=== PATIENT | male | born 1950 | race Caucasian/White ===

== ENCOUNTER → 2019-09-13 09:47 | Outpatient (BNVA) | payer OTHER, SELFPAY | PROVIDERS: Family Provider Family Medicine Adult Medicine; PCP Emergency Medicine Emergency Medical Services; Visit Provider Urology | DX: C61 Malignant neoplasm of prostate (principal); N39.9 Disorder of urinary system, unspecified; N40.1 Benign prostatic hyperplasia with lower urinary tract symptoms | CPT/HCPCS: 81001; 84153 ==

== ENCOUNTER 2019-10-14 11:59 | Outpatient (CLI) | payer OTHER, SELFPAY ==
--- NOTE | 2019-10-14 18:57 | ONC CON_ITS ---
Dr. Salazar New Patient Note Patient: Steve Adames Unit #: [id number]: 1950 Dicatated By: Terence Salazar M.D.Date of Visit: Oct 14, 2019 Onc MED New Patient/Consult Referring Physician: Dr. Wolf Cook M.D. Chief Complaint: Prostate cancer. History of Present Illness: This is a 69 year-old man with Cambridge score 7 adenocarcinoma of the prostate, by clinical evaluation stage IIB (T2b, N0, M0) at initial diagnosis in March 2007. His baseline PSA was 5.4 ng/mL. The prostate cancer was initially diagnosed by transrectal ultrasound-guided biopsy on 04/10/2007 with pathology showing Cambridge score 7 adenocarcinoma involving 6 of 6 specimens from the right lobe. Baseline PSA, as noted, was 5.4 ng/mL. He was treated with cryotherapy, completed in 2007. By 2008 the PSA had increased to 4.1, at which point he underwent external beam radiation in combination with an LHRH agonist. The radiation was completed in August 2008. He continued the androgen deprivation therapy until December 2008, having stopped at that point due to multiple toxicities including severe hot flashes and severe weakness/fatigue. He indicates that he began hormonal therapy with bicalutamide approximately 2 years ago. He had staging evaluation with CT scans of the chest and of the abdomen/pelvis and with bone scan in September 2017. None of these had shown any evidence of metastatic disease. He continued the bicalutamide for about a year. As of February 2019 his PSA had increased to 9.28 ng/mL. A PET/CT on 02/22/2019 reported abnormal activity within the prostate gland, consistent with local recurrence. A tiny punctate focus of increased activity was noted in the central aspect of the C6 vertebral body. Follow-up imaging of the neck was reportedly negative. As of June 2019 the PSA had further increased to 12.2 ng/mL. At that point he restarted bicalutamide 50 mg daily. He had follow-up with Dr. Cook on 09/13/2019. His repeat PSA level at that time was down to 5.1 ng/mL. He is seen now for further management of the prostate cancer. He says that overall he feels really good, though he does stay tired and sluggish. His ECOG score is 1. He has good appetite. He has no fever, night sweats, or hot flashes. His breathing is generally good, though he does get short of breath with more strenuous activity. He says he has a cigarette cough. He does not complain of chest pain. He has occasional acid reflux and he occasionally has constipation. He has some urgency with urination, and he has been voiding a little more frequently. He occasionally has a little leakage in association with strenuous activity. He has some joint pain, mainly in the shoulders. He also has arthritis in his hands and his ankles and feet, but he does not have much pain with it. He does not complain of headache. He has some dizziness if he gets up really fast. He occasionally has numbness in his left foot. He has no other focal neurologic symptoms. Past Medical History: His medical history includes chronic back pain, history of cardiac arrhythmia, hyperlipidemia, hypertension, post traumatic stress disorder, and prostate cancer. Past Surgical History: His other surgical/procedural history includes right total knee arthroplasty, cystoscopy with Urolift prostate implant x 4 in 2018, dorsal slit circumcision in 2016, and cholecystectomy in 2014. Medications: hydroCHLOROthiazide 0.5 Tablet (of 25 mg) Oral daily, Lisinopril 0.5 Tablet (of 10 mg) Oral daily Allergies: coreg Social History: Mr. Adames is and he is retired. He has a history of smoking for 55 years, in the range of 1 pack of cigarettes daily. He has now cut down to 1/2 pack/day. He currently does not drink alcohol. He had heavy alcohol use back in the early 1970s, but for only 2 years. Family History: Family history significant for father having of lung cancer at age 39 and for a sister having of ovarian cancer at age 47. His mother at age 75 with complications following gallbladder surgery. He has two brothers, one of whom has diabetes. He has one other sister who also has diabetes. Review Of Symptoms: Constitutional - He generally feels really good. He does stay fatigued most of the time. He does some light work around the house. His appetite is good and weight is stable. No fever, night sweats, or hot flashes. ECOG score is 1, Eyes - He has had a little decline in vision, ENMT - He has some hearing loss. No tinnitus. No sinus congestion/drainage. No mouth sores. No sore throat or difficulty swallowing, Hematologic/Lymphatic - He bruises easily, Respiratory - He has some shortness of breath with more strenuous activity. He has a chronic smoker's cough. No pleuritic pain or hemoptysis, Cardiovascular - No angina pain. No palpitations, Gastrointestinal - No nausea or vomiting. No heartburn or acid reflux. No diarrhea. He has some occasional mild constipation. No blood in the stool or black stools, Genitourinary (M) - No dysuria or hematuria. He has urgency with urination and he voids a little more frequently. He has a little incontinence with strenuous activity, Musculoskeletal - He has arthritis pain in his shoulders and ankles. He also has soem chronic back pain, Integumentary - No skin complications, Neurologic - No headache or dizziness. He has occasional tingling in his left foot. No other focal neurologic symptoms, Psychiatric - No anxiety or depression. No insomnia. Vital Signs: Performed on Oct 14, 2019 12:44: 0, 30.31 (HIGH), 2.43 sq.m, 76.00 in, 97 %, 74 /min, 22 /min, 140/81 mm(hg), 98.4 F, and 249.0 lbs (HIGH). Physical Examination: Constitutional - He appears to be in good general health, Eyes - Sclerae nonicteric. Conjunctivae clear, ENMT - No lesions noted in the oral cavity, Neck - No mass or thyromegaly, Hematologic/Lymphatic - No cervical, clavicular, or axillary adenopathy, Respiratory - Lungs show some decrease in air movement bilaterally. There are coarse rales bilaterally, Cardiovascular - Heart rhythm is regular. There is no murmur, gallop, or rub noted, Abdomen - Soft and non-tender. Liver and spleen are not enlarged. There is no abdominal mass or ascites noted and there is no inguinal adenopathy, Back/Spine - No spine or CVA tenderness noted, Extremities - No edema. Dorsalis pulses are palpable bilaterally. There are scattered purpuric lesions on both arms, Integumentary - No rashes. No suspicious skin lesions noted, Neurologic - No focal neurologic deficits noted. Impression: 1. Patient with Cambridge score 7 adenocarcinoma of the prostate, by clinical evaluation stage IIB (T2b, N0, M0) at initial diagnosis in March 2007. His baseline PSA was 5.4 ng/mL. He underwent cryotherapy, completed in 2007. 2. In 2008 he underwent external beam radiation in association with androgen deprivation therapy for biochemical recurrence/progression. The radiation was completed in August 2008. He stopped androgen deprivation in December 2008 due to multiple side effects. 3. He began anti-androgen therapy with bicalutamide in 2017, again because of biochemical progression. There was no evidence of metastatic involvement on his staging imaging studies. He completed approximately 1 year of therapy. 4. Staging PET/CT in February 2019 for rising PSA (9.28 ng/mL) reportedly showed abnormal activity within the prostate gland consistent with local recurrence and a tiny focus of increased activity in the central aspect of the C6 vertebral body. Significance of the latter was uncertain, as follow-up imaging was reportedly negative. 5. In June 2019 he restarted bicalutamide 50 mg daily due to further increase in the PSA to 12.2 ng/mL. He does appear to be showing response by PSA level. His other medical illnesses include: 6. Hypertension. 7. Hyperlipidemia. 8. He appears to have COPD by clinical evaluation. 9. He has a history of cardiac arrhythmia. 10. Degenerative arthritis. 11. History of PTSD. 12. There is family history of ovarian cancer involving a first-degree relative. Patient has had evidence of local recurrence of his prostate cancer following initial cryotherapy and subsequent external beam radiation in association with short course androgen deprivation therapy. He tolerated the androgen deprivation very poorly. More recently, he has had evidence of response to antiandrogen therapy with bicalutamide, which he seems to tolerate pretty well. As yet, there has still been no documented metastatic disease. There is also the issue of his family history of ovarian cancer involving a first-degree relative, which raises the possibility of a BRCA-related malignancy. Plan: We discussed the fact that addition of androgen deprivation therapy would potentially be more effective in controlling his disease, but it obviously would be at the expense of significantly more side effects and a reduced quality of life. As he does appear to be showing response to the bicalutamide, I think it is very reasonable to just continue with the antiandrogen therapy, though I did suggest that he at least try increasing the bicalutamide dosage to 50 mg 3 times a day. For the time being I will continue to monitor his PSA monthly. He will be scheduled for a follow-up visit in 3 months, at which time I will obtain additional laboratory studies which will include screening for BCRA. At some point it would also potentially be helpful to have a next generation sequencing study, but in all likelihood that is going to require a new biopsy. Signed By: Terence Salazar M.D. <<Signature on File>>
== END 2019-10-14 12:00 | disposition home or self-care (01) ==
LOC: ONCMED 12:01
PROVIDERS: PCP Emergency Medicine Emergency Medical Services; Referring Provider Emergency Medicine Emergency Medical Services; Visit Provider Internal Medicine Medical Oncology
DX: C61 Malignant neoplasm of prostate (principal); E78.5 Hyperlipidemia, unspecified; I10 Essential (primary) hypertension; F43.10 Post-traumatic stress disorder, unspecified; J44.9 Chronic obstructive pulmonary disease, unspecified; Z92.3 Personal history of irradiation; Z79.818 Long term (current) use of other agents affecting estrogen receptors and estrogen levels
CPT/HCPCS: 99205

== ENCOUNTER 2019-11-15 09:43 | Outpatient (CLI) | payer OTHER, SELFPAY | END 2019-11-15 09:44 | disposition home or self-care (01) | LOC: ONCMED 09:46 | PROVIDERS: PCP Emergency Medicine Emergency Medical Services; Visit Provider Internal Medicine Medical Oncology | DX: C61 Malignant neoplasm of prostate (principal) | CPT/HCPCS: 36415; 84153 ==

== ENCOUNTER 2019-12-20 09:45 | Outpatient (CLI) | payer OTHER, SELFPAY | END 2019-12-20 09:46 | disposition home or self-care (01) | LOC: ONCMTN 09:46 → ONCMED 15:05 | PROVIDERS: PCP Emergency Medicine Emergency Medical Services; Visit Provider Internal Medicine Medical Oncology | DX: C61 Malignant neoplasm of prostate (principal) | CPT/HCPCS: 36415; 84153 ==

== ENCOUNTER 2020-01-20 11:50 | Outpatient (CLI) | payer OTHER, SELFPAY ==
[2020-01-20 15:41] LABS: Basophils % 0.5 %; Eosinophils # 0.1 10^3/uL (0.0-0.8); Eosinophils % 1.1 %; Hematocrit 41.7 % (42.0-52.0); Lymphocytes # 1.7 10^3/uL (0.8-4.8); Lymphocytes % 21.4 %; Mean Corpuscular HGB Conc 33.6 g/dL (30.0-36.0); Mean Corpuscular Hemoglobin 31.9 pg (28.0-34.0); Mean Platelet Volume 10.1 fL (7.4-10.4); Monocytes # 0.6 10^3/uL (0.2-0.9); Monocytes % 7.7 %; Neutrophils # 5.55 10^3/uL (1.8-7.7); Neutrophils % 69.1 %; Nucleated Red Blood Cells % 0 %; Platelet Count 216 10^3/cmm (130-400); Red Blood Count 4.39 10^6/uL (4.1-5.3)
[2020-01-20 16:11] LABS: Alanine Aminotransferase 16 U/L (0-41); Albumin Level 4.3 g/dL (3.5-5.2); Alkaline Phosphatase 72 IU/L (40-130); Aspartate Amino Transferase 22 U/L (0-40); Blood Urea Nitrogen 24 mg/dL (8-23); Calcium 9.5 mg/dL (8.5-10.5); Carbon Dioxide 28 mmol/L (22-29); Chloride 103 mmol/L (98-107); Globulin 3.2 g/dL (1.3-4.6); Glucose 99 mg/dL (65-115); Osmolality Calculated 287 mOsm/kg (285-295); Sodium 140 mmol/L (136-145); Testosterone Total 716.6 ng/dL (193-740); Thyroid Stimulating Hormone 1.63 uIU/mL (0.27-4.20); Total Bilirubin 0.3 mg/dL (0.15-1.2); Total Protein 7.5 g/dL (6.6-8.7)
[2020-01-20 16:50] LABS: Erythrocyte Sedimentation Rate 24 mm/hr (0-10)
--- NOTE | 2020-01-24 07:16 | ONC FU_ITS ---
Dr. Salazar Patient Follow-Up Note Patient: Steve Adames Unit #: [id number]: [id number] Dicatated By: Terence Salazar M.D.Date of Visit:Jan 20, 2020 Onc Med Follow-up/Prog Note Chief Complaint: Prostate cancer. History of Present Illness: This is a 69 year-old man with Railroad score 7 adenocarcinoma of the prostate, by clinical evaluation stage IIB (T2b, N0, M0) at initial diagnosis in March 2007. His baseline PSA was 5.4 ng/mL. The prostate cancer was initially diagnosed by transrectal ultrasound-guided biopsy on 04/10/2007 with pathology showing Enriqueta score 7 adenocarcinoma involving 6 of 6 specimens from the right lobe. Baseline PSA, as noted, was 5.4 ng/mL. He was treated with cryotherapy, completed in 2007. By 2008 the PSA had increased to 4.1, at which point he underwent external beam radiation in combination with an LHRH agonist. The radiation was completed in August 2008. He continued the androgen deprivation therapy until December 2008, having stopped at that point due to multiple toxicities including severe hot flashes and severe weakness/fatigue. He began hormonal therapy with bicalutamide approximately 2 years ago. He had staging evaluation with CT scans of the chest and of the abdomen/pelvis and with bone scan in September 2017. None of these had shown any evidence of metastatic disease. He continued the bicalutamide for about a year. As of February 2019 his PSA had increased to 9.28 ng/mL. A PET/CT on 02/22/2019 reported abnormal activity within the prostate gland, consistent with local recurrence. A tiny punctate focus of increased activity was noted in the central aspect of the C6 vertebral body. Follow-up imaging of the neck was reportedly negative. As of June 2019 the PSA had further increased to 12.2 ng/mL. At that point he restarted bicalutamide 50 mg daily. He had follow-up with Dr. Cook on 09/13/2019. His repeat PSA level at that time was down to 5.1 ng/mL. I had seen him initially on 10/14/2019. At that time he preferred to limit his treatment to the bicalutamide, but he did agree to try increasing the dosage up to 50 mg 3 times daily. As of 11/15/2019 his PSA had decreased to 4.10 ng/mL, and by 12/20/2019 had further declined to 2.35 ng/mL. However, at that point he had reduced his bicalutamide to twice daily due to side effects, mainly fatigue. His other medical illnesses include hypertension, hyperlipidemia, COPD, and degenerative arthritis. He also has a history of cardiac arrhythmia and a history of PTSD. He also has a family history of ovarian carcinoma affecting a first-degree relative. He has a history of smoking for 55 years, in the range of 1 pack of cigarettes daily. He has cut down to 1/2 pack/day. He is seen for a follow-up visit. His main complaint is that the bicalutamide is making him tired, but he is able to do light work. His ECOG score is 1. He has good appetite. He does not have fever, night sweats, or hot flashes. He says his breathing is not quite as good, and he does have some cough. He does not complain of chest pain. He has no GI or complaints. He has having muscle aching in his shoulders, mainly the deltoid area. He has no significant joint or bone pain. He reports having a little bit of tingling on the bottoms of his feet. Medications: Bicalutamide 1 (50 mg) Tablet Oral b.i.d., hydroCHLOROthiazide 0.5 Tablet (of 25 mg) Oral daily, Lisinopril 0.5 Tablet (of 10 mg) Oral daily Allergies: coreg Review of Systems: Constitutional - He complains that the bicalutamide is making him tired. He has still doing light work. He has good appetite. He does not have fever, night sweats, or hot flashes. ECOG score is 1, ENMT - No sinus congestion/drainage. No mouth sores. No sore throat or difficulty swallowing, Hematologic/Lymphatic - No abnormal bruising or bleeding, Respiratory - His breathing is not quite as good, and he does have some cough. No pleuritic pain or hemoptysis, Cardiovascular - No angina pain. No palpitations, Gastrointestinal - No nausea or vomiting. He has very occasional acid reflux. No diarrhea or constipation. No blood in the stool or black stools, Genitourinary (M) - No dysuria or hematuria. No urinary frequency. No urgency or incontinence, Musculoskeletal - He is having muscle aching in his shoulders, mainly the deltoid area. He has no significant joint or bone pain, Integumentary - No skin rash, Neurologic - No headache. He has a little bit of dizziness. He has a little bit of tingling on the bottoms of his feet. No other focal neurologic symptoms, Psychiatric - No anxiety or depression. No insomnia. Vital Signs: Performed on Jan 20, 2020 13:52 Height - 76.00 in Weight - 248.6 lbs (LOW) BSA - 2.43 sq.m BMI - 30.26 (HIGH) Temperature - 98.1 F (LOW) Pulse - 66 /min Respiration - 17 /min BP - 135/76 mm(hg) O2 Sat - 98 % Pain - 0 Physical Examination: Constitutional - He looks good generally, Eyes - Sclerae nonicteric. Conjunctivae clear, ENMT - No lesions noted in the oral cavity, Hematologic/Lymphatic - No cervical, clavicular, or axillary adenopathy, Respiratory - Lungs sound clear with some decrease in air movement bilaterally, Cardiovascular - Heart rhythm is regular. There is no murmur, gallop, or rub noted, Abdomen - Soft. Liver and spleen are not enlarged. There is no abdominal mass or ascites noted and there is no inguinal adenopathy, Extremities - No edema, Neurologic - No focal neurologic deficits noted. Lab/Imaging: Test performed on Jan 20, 2020 12:00 PSA 3.050 ng/mL Impression: 1. Patient with Enriqueta score 7 adenocarcinoma of the prostate, by clinical evaluation stage IIB (T2b, N0, M0) at initial diagnosis in March 2007. His baseline PSA was 5.4 ng/mL. He underwent cryotherapy, completed in 2007. 2. In 2008 he underwent external beam radiation in association with androgen deprivation therapy for biochemical recurrence/progression. The radiation was completed in August 2008. He stopped androgen deprivation in December 2008 due to multiple side effects. 3. He began anti-androgen therapy with bicalutamide in 2017, again because of biochemical progression. There was no evidence of metastatic involvement on his staging imaging studies. He completed approximately 1 year of therapy. 4. Staging PET/CT in February 2019 for rising PSA (9.28 ng/mL) reportedly showed abnormal activity within the prostate gland consistent with local recurrence and a tiny focus of increased activity in the central aspect of the C6 vertebral body. Significance of the latter was uncertain, as follow-up imaging was reportedly negative. 5. In June 2019 he restarted bicalutamide 50 mg daily due to further increase in the PSA to 12.2 ng/mL. He does appear to be showing response by PSA level. His other medical illnesses include: 6. Hypertension. 7. Hyperlipidemia. 8. He appears to have COPD by clinical evaluation. 9. He has a history of cardiac arrhythmia. 10. Degenerative arthritis. 11. History of PTSD. 12. There is family history of ovarian cancer involving a first-degree relative. Patient had evidence of local recurrence of his prostate cancer following initial cryotherapy and subsequent external beam radiation in association with short course androgen deprivation therapy. He tolerated the androgen deprivation very poorly. He has had response to anti-androgen therapy with bicalutamide, and as yet there has been no documented metastatic disease. He has family history of ovarian cancer involving a first-degree relative, which raises the possibility of a BRCA-related malignancy. He did show further decrease in his PSA level with his bicalutamide dosage increased to 50 mg 3 times daily, but he has not been able to tolerate that dosage due to fatigue and muscle pain. Plan: He will continue the bicalutamide at 50 mg daily. If his PSA increases significantly, we will need to discuss other treatment options. In the meantime, he will have additional laboratory studies today to include CBC, CMP, TSH level, and sed rate. In addition, he will have BRCA testing. I will tentatively plan a follow-up visit in 3 months. Signed By: Terence Salazar M.D. <<Signature on File>>
== END 2020-01-20 11:51 | disposition home or self-care (01) ==
LOC: ONCMED 11:50
PROVIDERS: PCP Emergency Medicine Emergency Medical Services; Visit Provider Internal Medicine Medical Oncology
DX: C61 Malignant neoplasm of prostate (principal); R53.83 Other fatigue; M79.10 Myalgia, unspecified site; I10 Essential (primary) hypertension; E78.5 Hyperlipidemia, unspecified; M19.90 Unspecified osteoarthritis, unspecified site; F43.10 Post-traumatic stress disorder, unspecified; Z80.41 Family history of malignant neoplasm of ovary; Z79.899 Other long term (current) drug therapy
CPT/HCPCS: 36415; 80053; 84153; 84403; 84443; 85025; 85651; 99214

== ENCOUNTER 2020-04-24 11:44 | Outpatient (CLI) | payer OTHER, SELFPAY ==
--- NOTE | 2020-04-28 14:44 | ONC FU_ITS ---
Dr. Salazar Patient Follow-Up Note Patient: Steve Adames Unit #: [id number]: [id number] Dicatated By: Terence Salazar M.D.Date of Visit:Apr 24, 2020 Onc Med Follow-up/Prog Note Chief Complaint: Prostate cancer. History of Present Illness: This is a 70 year-old man with Cornel[place] score 7 adenocarcinoma of the prostate, by clinical evaluation stage IIB (T2b, N0, M0) at initial diagnosis in March 2007. His baseline PSA was 5.4 ng/mL. The prostate cancer was initially diagnosed by transrectal ultrasound-guided biopsy on 04/10/2007 with pathology showing Enriqueta score 7 adenocarcinoma involving 6 of 6 specimens from the right lobe. Baseline PSA, as noted, was 5.4 ng/mL. He was treated with cryotherapy, completed in 2007. By 2008 the PSA had increased to 4.1, at which point he underwent external beam radiation in combination with an LHRH agonist. The radiation was completed in August 2008. He continued the androgen deprivation therapy until December 2008, having stopped at that point due to multiple toxicities including severe hot flashes and severe weakness/fatigue. He began hormonal therapy with bicalutamide approximately 2 years ago. He had staging evaluation with CT scans of the chest and of the abdomen/pelvis and with bone scan in September 2017. None of these had shown any evidence of metastatic disease. He continued the bicalutamide for about a year. As of February 2019 his PSA had increased to 9.28 ng/mL. A PET/CT on 02/22/2019 reported abnormal activity within the prostate gland, consistent with local recurrence. A tiny punctate focus of increased activity was noted in the central aspect of the C6 vertebral body. Follow-up imaging of the neck was reportedly negative. As of June 2019 the PSA had further increased to 12.2 ng/mL. At that point he restarted bicalutamide 50 mg daily. He had follow-up with Dr. Cook on 09/13/2019. His repeat PSA level at that time was down to 5.1 ng/mL. I had seen him initially on 10/14/2019. At that time he preferred to limit his treatment to the bicalutamide, but he did agree to try increasing the dosage up to 50 mg 3 times daily. As of 11/15/2019 his PSA had decreased to 4.10 ng/mL, and by 12/20/2019 had further declined to 2.35 ng/mL. However, at that point he had reduced his bicalutamide to twice daily due to side effects, mainly fatigue. His other medical illnesses include hypertension, hyperlipidemia, COPD, and degenerative arthritis. He also has a history of cardiac arrhythmia and a history of PTSD. He also has a family history of ovarian carcinoma affecting a first-degree relative. He has a history of smoking for 55 years, in the range of 1 pack of cigarettes daily. He has cut down to 1/2 pack/day. INTERIM HISTORY: He was seen for a follow-up visit again on 01/20/2020. His PSA had increased just slightly, to 3.050 ng/mL. Due to fatigue, he had further decreased his bicalutamide to 50 mg daily. He is seen for a follow-up visit. He indicates that as of 5 weeks ago he was so tired that he could not hardly do anything, and at that point he stopped his bicalutamide. Since then he has been gaining some strength, and he is able to do light work. His ECOG score is 1. He has good appetite. He has no fever, night sweats, or hot flashes. He says his breathing is pretty good. He has just a little bit of cough. He does not complain of chest pain. He has no GI complaints other than his bowels have never been regular, but that is not any worse than usual. He has frequent urination. He has joint pain, mainly in his wrists. For the past 3 months he is also been having pain in his right shoulder. He does not complain of headache. He has a little bit of numbness on the bottoms of his feet. Medications: hydroCHLOROthiazide 0.5 Tablet (of 25 mg) Oral daily, Lisinopril 0.5 Tablet (of 10 mg) Oral daily Allergies: coreg Review of Systems: Constitutional - He has had significant fatigue. As of 5 weeks ago he stopped his bicalutamide because he had gotten to the point where he hardly could do anything. He is now gaining strength and doing some light work. Appetite is good. He does not have fever, night sweats, or hot flashes. ECOG score is 1, ENMT - He has some sinus congestion/drainage. No mouth sores. No sore throat or difficulty swallowing, Hematologic/Lymphatic - No abnormal bruising or bleeding, Respiratory - No shortness of breath. He has a little bit of cough. No pleuritic pain or hemoptysis, Cardiovascular - No angina pain. No palpitations, Gastrointestinal - No nausea or vomiting. He occasionally has heartburn. His bowels are never regular, but they are no worse than usual. No blood in the stool or black stools, Genitourinary (M) - No dysuria or hematuria. He has urinary frequency. No urgency or incontinence, Musculoskeletal - He has pain in his wrist. For the past 3 months he is also been having pain in his right shoulder, Integumentary - No skin rash, Neurologic - No headache. He has occasional dizziness if he gets up too fast. He has a little bit of numbness on the bottoms of his feet. No other focal neurologic symptoms, Psychiatric - No anxiety or depression. No insomnia. Vital Signs: Performed on Apr 24, 2020 14:06 Height - 76.00 in Weight - 251.8 lbs (HIGH) BSA - 2.44 sq.m BMI - 30.65 (HIGH) Temperature - 97.0 F (LOW) Pulse - 80 /min Respiration - 18 /min BP - 141/75 mm(hg) (HIGH) O2 Sat - 97 % Pain - 1 Physical Examination: Constitutional - He looks good generally, Eyes - Sclerae nonicteric. Conjunctivae clear, ENMT - No lesions noted in the oral cavity, Hematologic/Lymphatic - No cervical, clavicular, or axillary adenopathy, Respiratory - Lungs sound clear with some decrease in air movement bilaterally, Cardiovascular - Heart rhythm is regular. There is no murmur, gallop, or rub noted, Abdomen - Soft. Liver and spleen are not enlarged. There is no abdominal mass or ascites noted and there is no inguinal adenopathy, Extremities - Slight edema, Neurologic - No focal neurologic deficits noted. Lab/Imaging: Test performed on Apr 24, 2020 12:03 PSA 10.750 ng/mL Test performed on Jan 20, 2020 15:05 Sodium 140 mmol/L Testosterone, Total 716.6 ng/dL TSH 1.63 uIU/mL Potassium 4.0 mmol/L Chloride 103 mmol/L CO2 28 mmol/L Anion Gap 13.0 BUN 24 mg/dL Creatinine 1.1 mg/dL Cr Clearance (Est) 96.8200 mL/min Glucose 99 mg/dL Calcium 9.5 mg/dL Osmolality - Calculated 287 mOsm/kg Protein, Total 7.5 g/dL Albumin 4.3 g/dL Globulin 3.2 g/dL Bilirubin, Total 0.3 mg/dL ALT (SGPT) 16 U/L AST (SGOT) 22 U/L Alkaline Phosphatase 72 IU/L ESR (Sed Rate) 24 mm/hr WBC 8.0 10 3/uL RBC 4.39 10 6/uL HGB 14.0 g/dL HCT 41.7 % MCV 95.0 fL MCH 31.9 pg MCHC 33.6 g/dL RDW 12.0 % Platelet Count 216 10 3/cmm MPV 10.1 fL Neutrophils 5.55 10 3/uL Lymphocytes 1.7 10 3/uL Monocytes 0.6 10 3/uL Eosinophils 0.1 10 3/uL Basophils 0.0 10 3/uL Neutrophil % 69.1 % Lymphocyte % 21.4 % Monocyte % 7.7 % Eosinophil % 1.1 % Basophils % 0.5 % NRBC % 0 % Impression: 1. Patient with Enriqueta score 7 adenocarcinoma of the prostate, by clinical evaluation stage IIB (T2b, N0, M0) at initial diagnosis in March 2007. His baseline PSA was 5.4 ng/mL. He underwent cryotherapy, completed in 2007. 2. In 2008 he underwent external beam radiation in association with androgen deprivation therapy for biochemical recurrence/progression. The radiation was completed in August 2008. He stopped androgen deprivation in December 2008 due to multiple side effects. 3. He began anti-androgen therapy with bicalutamide in 2017, again because of biochemical progression. There was no evidence of metastatic involvement on his staging imaging studies. He completed approximately 1 year of therapy. 4. Staging PET/CT in February 2019 for rising PSA (9.28 ng/mL) reportedly showed abnormal activity within the prostate gland consistent with local recurrence and a tiny focus of increased activity in the central aspect of the C6 vertebral body. Significance of the latter was uncertain, as follow-up imaging was reportedly negative. 5. In June 2019 he restarted bicalutamide 50 mg daily due to further increase in the PSA to 12.2 ng/mL. He does appear to be showing response by PSA level. His other medical illnesses include: 6. Hypertension. 7. Hyperlipidemia. 8. He appears to have COPD by clinical evaluation. 9. He has a history of cardiac arrhythmia. 10. Degenerative arthritis. 11. History of PTSD. 12. There is family history of ovarian cancer involving a first-degree relative. His genetic screen showed no evidence for BRCA mutation. Patient had evidence of local recurrence of his prostate cancer following initial cryotherapy and subsequent external beam radiation in association with short course androgen deprivation therapy. He tolerated the androgen deprivation very poorly. He has had response to anti-androgen therapy with bicalutamide, and as yet there has been no documented metastatic disease. He has family history of ovarian cancer involving a first-degree relative, which raises the possibility of a BRCA-related malignancy. He did show further decrease in his PSA level with his bicalutamide dosage increased to 50 mg 3 times daily, but hewas not been able to tolerate that dosage due to fatigue and muscle pain. As of his follow-up visit in December he had decreased the bicalutamide to 50 mg twice daily and in January he further decreased it to 50 mg daily. As of 5 weeks ago he was so fatigued that he stopped the bicalutamide altogether. He is now starting to feel a little better. There has been a significant increase in his PSA level, now to 10.750 ng/mL. Plan: We discussed the fact that it is extremely unlikely that he will tolerate a high enough dosage of bicalutamide to effectively control his prostate cancer. I reviewed other treatment options, 1 of which would be to resume androgen deprivation therapy with an LH/Rh analog. The other would be chemotherapy. Either would potentially have significant side effects for him. At least for now he prefers to just monitor with observation/expectant management, as we do not know at what point the prostate cancer may become symptomatic. I will tentatively plan a follow-up visit in 3 months. Signed By: Terence Salazar M.D. <<Signature on File>>
== END 2020-04-24 11:45 | disposition home or self-care (01) ==
LOC: ONCMED 11:45
PROVIDERS: PCP Emergency Medicine Emergency Medical Services; Visit Provider Internal Medicine Medical Oncology
DX: C61 Malignant neoplasm of prostate (principal); R97.21 Rising PSA following treatment for malignant neoplasm of prostate; I10 Essential (primary) hypertension; E78.5 Hyperlipidemia, unspecified; J44.9 Chronic obstructive pulmonary disease, unspecified; I49.9 Cardiac arrhythmia, unspecified; M19.90 Unspecified osteoarthritis, unspecified site; F43.10 Post-traumatic stress disorder, unspecified; Z92.3 Personal history of irradiation; Z92.29 Personal history of other drug therapy; Z80.41 Family history of malignant neoplasm of ovary
CPT/HCPCS: 36415; 84153; 99214

== ENCOUNTER 2020-07-24 10:50 | Outpatient (CLI) | payer OTHER, SELFPAY ==
[2020-07-24 11:19] LABS: Basophils % 0.4 %; Eosinophils # 0.1 10^3/uL (0.0-0.8); Eosinophils % 0.7 %; Hematocrit 46.9 % (42.0-52.0); Hemoglobin 15.6 g/dL (11.7-16.6); Lymphocytes # 1.3 10^3/uL (0.8-4.8); Lymphocytes % 16.9 %; Mean Corpuscular HGB Conc 33.3 g/dL (30.0-36.0); Mean Corpuscular Hemoglobin 30.6 pg (28.0-34.0); Mean Platelet Volume 9.8 fL (7.4-10.4); Monocytes # 0.3 10^3/uL (0.2-0.9); Neutrophils # 5.97 10^3/uL (1.8-7.7); Neutrophils % 77.7 %; Nucleated Red Blood Cells % 0 %; Platelet Count 236 10^3/cmm (130-400); Red Cell Distribution Width 12.2 % (12.1-15.1); White Blood Count 7.7 10^3/uL (4.0-10.0)
[2020-07-24 12:05] LABS: Alanine Aminotransferase 14 U/L (0-41); Albumin Level 4.1 g/dL (3.5-5.2); Alkaline Phosphatase 79 IU/L (40-130); Anion Gap 13.6 (5-19); Aspartate Amino Transferase 14 U/L (0-40); Blood Urea Nitrogen 22 mg/dL (8-23); Calcium 9.4 mg/dL (8.5-10.5); Carbon Dioxide 24 mmol/L (22-29); Chloride 97 mmol/L (98-107); Globulin 3.1 g/dL (1.3-4.6); Glucose 177 mg/dL (65-115); Osmolality Calculated 280 mOsm/kg (285-295); Potassium 3.6 mmol/L (3.5-5.1); Sodium 131 mmol/L (136-145); Total Bilirubin 0.3 mg/dL (0.15-1.2); Total Protein 7.2 g/dL (6.6-8.7)
[2020-07-24 12:40] LABS: Testosterone Total 741.3 ng/dL (193-740)
[2020-07-24 13:37] LABS: Add Urine Microscopic? NO
[2020-07-24 13:54] LABS: Bilirubin Urine Neg (Negative); Blood Urine Neg (Negative); Glucose Urine UA Trace (Normal); Ketones Urine Negative (Negative); Leukocyte Esterase Urine Negative (Negative); Nitrate Urine Negative (Negative); Protein Urine Neg (Negative); Specific Gravity, Urine 1.015 (1.005-1.030); Urine Appearance Clear (CLEAR); Urine Color Yellow (Yellow); Urobilinogen Urine Norm (Negative); pH Urine 6 (5-7)
--- NOTE | 2020-07-26 07:01 | ONC FU_ITS ---
Dr. Salazar Patient Follow-Up Note Patient: Steve Adames Unit #: [id number]: [id number] Dicatated By: Terence Salazar M.D.Date of Visit:Jul 24, 2020 Onc Med Follow-up/Prog Note Chief Complaint: Prostate cancer. History of Present Illness: This is a 70 year-old man with [place] score 7 adenocarcinoma of the prostate, by clinical evaluation stage IIB (T2b, N0, M0) at initial diagnosis in March 2007. His baseline PSA was 5.4 ng/mL. The prostate cancer was initially diagnosed by transrectal ultrasound-guided biopsy on 04/10/2007 with pathology showing Enriqueta score 7 adenocarcinoma involving 6 of 6 specimens from the right lobe. Baseline PSA, as noted, was 5.4 ng/mL. He was treated with cryotherapy, completed in 2007. By 2008 the PSA had increased to 4.1, at which point he underwent external beam radiation in combination with an LHRH agonist. The radiation was completed in August 2008. He continued the androgen deprivation therapy until December 2008, having stopped at that point due to multiple toxicities including severe hot flashes and severe weakness/fatigue. He began hormonal therapy with bicalutamide approximately 2 years ago. He had staging evaluation with CT scans of the chest and of the abdomen/pelvis and with bone scan in September 2017. None of these had shown any evidence of metastatic disease. He continued the bicalutamide for about a year. As of February 2019 his PSA had increased to 9.28 ng/mL. A PET/CT on 02/22/2019 reported abnormal activity within the prostate gland, consistent with local recurrence. A tiny punctate focus of increased activity was noted in the central aspect of the C6 vertebral body. Follow-up imaging of the neck was reportedly negative. As of June 2019 the PSA had further increased to 12.2 ng/mL. At that point he restarted bicalutamide 50 mg daily. He had follow-up with Dr. Cook on 09/13/2019. His repeat PSA level at that time was down to 5.1 ng/mL. I had seen him initially on 10/14/2019. At that time he preferred to limit his treatment to the bicalutamide, but he did agree to try increasing the dosage up to 50 mg 3 times daily. As of 11/15/2019 his PSA had decreased to 4.10 ng/mL, and by 12/20/2019 had further declined to 2.35 ng/mL. However, at that point he had reduced his bicalutamide to twice daily due to side effects, mainly fatigue. His other medical illnesses include hypertension, hyperlipidemia, COPD, and degenerative arthritis. He also has a history of cardiac arrhythmia and a history of PTSD. He also has a family history of ovarian carcinoma affecting a first-degree relative. He has a history of smoking for 55 years, in the range of 1 pack of cigarettes daily. He has cut down to 1/2 pack/day. INTERIM HISTORY: He was seen for a follow-up visit again on 01/20/2020. His PSA had increased just slightly, to 3.050 ng/mL. Due to fatigue, he had further decreased his bicalutamide to 50 mg daily. He was seen for a follow-up visit on 04/24/2020. He had stopped the bicalutamide 5 weeks earlier due to increasing fatigue. His PSA had further increased to 10.750 ng/mL, but he was feeling much better, and he opted to just continue follow-up on observation/expectant management. He is seen for a follow-up visit. He says he has been feeling pretty good, though he has been a little tired. He has been golfing and doing light work. ECOG score is 1. He has good appetite. He does not have fever, night sweats, or hot flashes. He has a little bit of sinus drainage and he has a tiny cough. He says his breathing could be better. He does not complain of chest pain. He has no GI complaints other than occasional heartburn, which is chronic. He has frequent urination. He has joint pain, mainly in both wrists. His right shoulder has also been bothering him for a while. He has no other joint or bone pain. He does not complain of headache. He occasionally has dizziness and he occasionally has numbness in his feet. Medications: hydroCHLOROthiazide 0.5 Tablet (of 25 mg) Oral daily, Lisinopril 0.5 Tablet (of 10 mg) Oral daily Allergies: coreg Vital Signs: Performed on Jul 24, 2020 12:47 Height - 76.00 in Weight - 254.4 lbs (HIGH) BSA - 2.45 sq.m BMI - 30.97 (HIGH) Temperature - 98.9 F (HIGH) Pulse - 79 /min Respiration - 18 /min BP - 116/70 mm(hg) O2 Sat - 96 % Pain - 3 Fatigue - 4 Physical Examination: Constitutional - He looks good generally, Eyes - Sclerae nonicteric. Conjunctivae clear, ENMT - No lesions noted in the oral cavity, Hematologic/Lymphatic - No cervical, clavicular, or axillary adenopathy, Respiratory - Lungs sound clear, Cardiovascular - Heart rhythm is regular. There is no murmur, gallop, or rub noted, Abdomen - Soft. Liver and spleen are not enlarged. There is no abdominal mass or ascites noted and there is no inguinal adenopathy, Extremities - No edema, Neurologic - No focal neurologic deficits noted. Lab/Imaging: Test performed on Jul 24, 2020 11:00 Sodium 131 mmol/L Testosterone, Total 741.3 ng/dL Potassium 3.6 mmol/L Chloride 97 mmol/L CO2 24 mmol/L Anion Gap 13.6 BUN 22 mg/dL Creatinine 1.1 mg/dL Cr Clearance (Est) 99.08 mL/min Glucose 177 mg/dL Osmolality - Calculated 280 mOsm/kg Calcium 9.4 mg/dL Protein, Total 7.2 g/dL Albumin 4.1 g/dL Globulin 3.1 g/dL Bilirubin, Total 0.3 mg/dL ALT (SGPT) 14 U/L AST (SGOT) 14 U/L Alkaline Phosphatase 79 IU/L WBC 7.7 10 3/uL RBC 5.10 10 6/uL HGB 15.6 g/dL HCT 46.9 % MCV 92.0 fL MCH 30.6 pg MCHC 33.3 g/dL RDW 12.2 % Platelet Count 236 10 3/cmm MPV 9.8 fL Neutrophils 5.97 10 3/uL Lymphocytes 1.3 10 3/uL Monocytes 0.3 10 3/uL Eosinophils 0.1 10 3/uL Basophils 0.0 10 3/uL Neutrophil % 77.7 % Lymphocyte % 16.9 % Monocyte % 4.0 % Eosinophil % 0.7 % Basophils % 0.4 % NRBC % 0 % PSA 14.080 ng/mL Problem List: 1. Enriqueta score 7 adenocarcinoma of the prostate, by clinical evaluation stage IIB (T2b, N0, M0) at initial diagnosis in March 2007. His baseline PSA was 5.4 ng/mL. He underwent cryotherapy, completed in 2007. In 2008 he underwent external beam radiation in association with androgen deprivation therapy for biochemical recurrence/progression. 2. Hypertension. 3. Hyperlipidemia. 4. He appears to have COPD by clinical evaluation. 5. He has a history of cardiac arrhythmia. 6. Degenerative arthritis. 7. History of PTSD. 8. There is family history of ovarian cancer involving a first-degree relative. His genetic screen showed no evidence for BRCA mutation. Problems Addressed with this Encounter and Plan: 1. Patient with [place] score 7 adenocarcinoma of the prostate, by clinical evaluation stage IIB (T2b, N0, M0) at initial diagnosis in March 2007. His baseline PSA was 5.4 ng/mL. He underwent cryotherapy, completed in 2007. In 2008 he underwent external beam radiation in association with androgen deprivation therapy for biochemical recurrence. The radiation was completed in August 2008. He stopped androgen deprivation in December 2008 due to multiple side effects. In 2017 he began anti-androgen therapy with bicalutamide for further biochemical progression. There was no evidence of metastatic involvement on his staging imaging studies. He completed approximately 1 year of therapy. Staging PET/CT in February 2019 for rising PSA (9.28 ng/mL) reportedly showed abnormal activity within the prostate gland consistent with local recurrence and a tiny focus of increased activity in the central aspect of the C6 vertebral body. Significance of the latter was uncertain, as follow-up imaging was reportedly negative. In June 2019 he restarted bicalutamide 50 mg daily due to further increase in the PSA to 12.2 ng/mL. He did show response by PSA level, but he again had very poor tolerance for the antiandrogen therapy, and he stopped in March 2020. Since stopping the bicalutamide he has felt better generally. There has been some further increase in the PSA level, but he has not been symptomatic with it. In the absence of symptomatic disease progression, he will continue on observation/expectant management. I will see him again in 3 months. 2. Pyuria. [facility] showed numerous WBCs but with negative leukocyte esterase and negative nitrite. There were budding yeast noted on the microscopic exam. With those findings, I will recheck his urinalysis and culture. He will have further evaluation as indicated. Signed By: Terence Salazar M.D. <<Signature on File>>
== END 2020-07-24 10:51 | disposition home or self-care (01) ==
LOC: ONCMED 10:51
PROVIDERS: PCP Emergency Medicine Emergency Medical Services; Visit Provider Internal Medicine Medical Oncology
DX: Z08 Encounter for follow-up examination after completed treatment for malignant neoplasm (principal); Z85.46 Personal history of malignant neoplasm of prostate; I10 Essential (primary) hypertension; E78.5 Hyperlipidemia, unspecified; J44.9 Chronic obstructive pulmonary disease, unspecified; I49.9 Cardiac arrhythmia, unspecified; M19.90 Unspecified osteoarthritis, unspecified site; F43.12 Post-traumatic stress disorder, chronic; Z80.41 Family history of malignant neoplasm of ovary; Z79.899 Other long term (current) drug therapy
CPT/HCPCS: 80053; 81003; 84153; 84403; 85025; 99214

== ENCOUNTER 2020-08-09 06:00 | Outpatient (RCR) | payer OTHER, MEDICARE, SELFPAY | END 2020-08-09 23:59 | disposition home or self-care (01) | LOC: APT 06:00 | PROVIDERS: PCP Emergency Medicine Emergency Medical Services; Referring Provider Specialist; Visit Provider Specialist | DX: M25.511 Pain in right shoulder (principal) | CPT/HCPCS: 97161 ==

== ENCOUNTER 2020-08-10 06:00 | Outpatient (RCR) | payer OTHER, MEDICARE, SELFPAY | END 2020-09-08 23:59 | disposition home or self-care (01) | LOC: APT 06:00 | PROVIDERS: PCP Emergency Medicine Emergency Medical Services; Referring Provider Specialist; Visit Provider Specialist | DX: M25.511 Pain in right shoulder (principal) | CPT/HCPCS: 97110; 97112 ==

== ENCOUNTER → 2020-09-04 10:52 | Outpatient (BNVA) | payer MEDICARE, SELFPAY | PROVIDERS: PCP Emergency Medicine Emergency Medical Services; Visit Provider Nurse Practitioner Family | DX: R30.0 Dysuria (principal); N39.0 Urinary tract infection, site not specified; C61 Malignant neoplasm of prostate | CPT/HCPCS: 81003; 87077; 87086; 87184 ==

== ENCOUNTER 2020-09-09 06:00 | Outpatient (RCR) | payer OTHER, SELFPAY | END 2020-10-09 23:59 | disposition home or self-care (01) | LOC: APT 06:00 | PROVIDERS: PCP Emergency Medicine Emergency Medical Services; Referring Provider Specialist; Visit Provider Specialist | DX: M25.511 Pain in right shoulder (principal) | CPT/HCPCS: 97110; 97112 ==

== ENCOUNTER → 2020-09-18 10:33 | Outpatient (BNVA) | payer MEDICARE, SELFPAY | PROVIDERS: PCP Emergency Medicine Emergency Medical Services; Visit Provider Nurse Practitioner Family | DX: R30.0 Dysuria (principal); N39.0 Urinary tract infection, site not specified; C61 Malignant neoplasm of prostate | CPT/HCPCS: 81000 ==

== ENCOUNTER 2020-11-08 07:31 | Outpatient (CLI) | payer OTHER, MEDICARE, SELFPAY ==
[2020-11-08 08:57] LABS: Basophils % 0.3 %; Eosinophils # 0.1 10^3/uL (0.0-0.8); Eosinophils % 1.9 %; Hematocrit 47.5 % (42.0-52.0); Hemoglobin 15.9 g/dL (11.7-16.6); Lymphocytes # 1.3 10^3/uL (0.8-4.8); Lymphocytes % 21.5 %; Mean Corpuscular HGB Conc 33.5 g/dL (30.0-36.0); Mean Corpuscular Hemoglobin 30.8 pg (28.0-34.0); Mean Corpuscular Volume 92.1 fL (80-94); Mean Platelet Volume 10.1 fL (7.4-10.4); Monocytes # 0.6 10^3/uL (0.2-0.9); Monocytes % 9.5 %; Neutrophils # 3.85 10^3/uL (1.8-7.7); Neutrophils % 66.3 %; Nucleated Red Blood Cells % 0 %; Platelet Count 203 10^3/cmm (130-400); Red Blood Count 5.16 10^6/uL (4.1-5.3); Red Cell Distribution Width 13.3 % (12.1-15.1); White Blood Count 5.8 10^3/uL (4.0-10.0)
[2020-11-08 09:32] LABS: Alanine Aminotransferase 14 U/L (0-41); Alkaline Phosphatase 76 IU/L (40-130); Anion Gap 14.7 (5-19); Aspartate Amino Transferase 17 U/L (0-40); Blood Urea Nitrogen 27 mg/dL (8-23); Calcium 8.8 mg/dL (8.5-10.5); Carbon Dioxide 23 mmol/L (22-29); Chloride 105 mmol/L (98-107); Globulin 2.9 g/dL (1.3-4.6); Glucose 96 mg/dL (65-115); Osmolality Calculated 293 mOsm/kg (285-295); Potassium 3.7 mmol/L (3.5-5.1); Sodium 139 mmol/L (136-145); Total Bilirubin 0.3 mg/dL (0.15-1.2); Total Protein 6.9 g/dL (6.6-8.7)
--- NOTE | 2020-11-08 11:05 | ONC FU_ITS ---
Dr. Salazar Patient Follow-Up Note Patient: Steve Adames Unit #: [id number]: 1950 Dicatated By: Terence Salazar M.D.Date of Visit:Nov 08, 2020 Onc Med Follow-up/Prog Note Chief Complaint: Prostate cancer. History of Present Illness: This is a 70 year-old man with Almont score 7 adenocarcinoma of the prostate, by clinical evaluation stage IIB (T2b, N0, M0) at initial diagnosis in March 2007. His baseline PSA was 5.4 ng/mL. The prostate cancer was initially diagnosed by transrectal ultrasound-guided biopsy on 04/10/2007 with pathology showing Enriqueta score 7 adenocarcinoma involving 6 of 6 specimens from the right lobe. Baseline PSA, as noted, was 5.4 ng/mL. He was treated with cryotherapy, completed in 2007. By 2008 the PSA had increased to 4.1, at which point he underwent external beam radiation in combination with an LHRH agonist. The radiation was completed in August 2008. He continued the androgen deprivation therapy until December 2008, having stopped at that point due to multiple toxicities including severe hot flashes and severe weakness/fatigue. He began anti-androgen therapy with bicalutamide in 2017. He had staging evaluation with CT scans of the chest and of the abdomen/pelvis and with bone scan in September 2017. None of these had shown any evidence of metastatic disease. He continued the bicalutamide for about a year. As of February 2019 his PSA had increased to 9.28 ng/mL. A PET/CT on 02/22/2019 reported abnormal activity within the prostate gland, consistent with local recurrence. A tiny punctate focus of increased activity was noted in the central aspect of the C6 vertebral body. Follow-up imaging of the neck was reportedly negative. As of June 2019 the PSA had further increased to 12.2 ng/mL. At that point he restarted bicalutamide 50 mg daily. He had follow-up with Dr. Cook on 09/13/2019. His repeat PSA level at that time was down to 5.1 ng/mL. I had seen him initially on 10/14/2019. At that time he preferred to limit his treatment to the bicalutamide, but he did agree to try increasing the dosage up to 50 mg 3 times daily. As of 11/15/2019 his PSA had decreased to 4.10 ng/mL, and by 12/20/2019 had further declined to 2.35 ng/mL. However, at that point he had reduced his bicalutamide to twice daily due to side effects, mainly fatigue. He was seen for a follow-up visit again on 01/20/2020. His PSA had increased just slightly, to 3.050 ng/mL. Due to fatigue, he had further decreased his bicalutamide to 50 mg daily. He was seen for a follow-up visit on 04/24/2020. He had stopped the bicalutamide 5 weeks earlier due to increasing fatigue. His PSA had further increased to 10.750 ng/mL, but he was feeling much better, and he opted to just continue follow-up on observation/expectant management. His other medical illnesses include hypertension, hyperlipidemia, COPD, and degenerative arthritis. He also has a history of cardiac arrhythmia and a history of PTSD. He also has a family history of ovarian carcinoma affecting a first-degree relative. He has a history of smoking for 55 years, in the range of 1 pack of cigarettes daily. He has cut down to 1/2 pack/day. INTERIM HISTORY: As of his follow-up visit on 07/24/2020 he was feeling much better generally, though he continued to have some fatigue. There was only a slight further increase in his PSA level, to 14.080 ng/mL. He continued expectant management. He is seen for a follow-up visit. He says he still feels a little tired, but he is able to do quite a bit of work. He also enjoys golfing. His ECOG score is 1. He has good appetite. He does not have fever, night sweats, or hot flashes. He has a little sinus drainage and a little bit of cough. He has some shortness of breath with more strenuous activity. He does not complain of chest pain. He occasionally has a little acid reflux. He takes medication for it as needed. He has no other GI complaints. Bladder function remains adequate, though he does have some urgency and a little bit of leakage. He has some pain in his knees and wrists, which is not getting any worse. He does not complain of headache. He occasionally has dizziness. He occasionally has some numbness in his feet. Medications: hydroCHLOROthiazide 0.5 Tablet (of 25 mg) Oral daily, Lisinopril 0.5 Tablet (of 10 mg) Oral daily Allergies: coreg Vital Signs: Performed on Nov 08, 2020 09:40 Height - 76.00 in Weight - 249.2 lbs (LOW) BSA - 2.43 sq.m BMI - 30.33 (HIGH) Temperature - 97.6 F (LOW) Pulse - 68 /min Respiration - 18 /min BP - 117/75 mm(hg) O2 Sat - 97 % Pain - 0 Fatigue - 2 Physical Examination: Constitutional - He looks good generally, Eyes - Sclerae nonicteric. Conjunctivae clear, ENMT - No lesions noted in the oral cavity, Hematologic/Lymphatic - No cervical, clavicular, or axillary adenopathy, Respiratory - Lungs sound clear, Cardiovascular - Heart rhythm is regular. There is no murmur, gallop, or rub noted, Abdomen - Soft. Liver and spleen are not enlarged. There is no abdominal mass or ascites noted and there is no inguinal adenopathy, Extremities - No edema, Neurologic - No focal neurologic deficits noted. Lab/Imaging: Test performed on Nov 08, 2020 07:50 Sodium 139 mmol/L Potassium 3.7 mmol/L Chloride 105 mmol/L CO2 23 mmol/L Anion Gap 14.7 BUN 27 mg/dL Creatinine 1.0 mg/dL Cr Clearance (Est) 106.76 mL/min Glucose 96 mg/dL Osmolality - Calculated 293 mOsm/kg Calcium 8.8 mg/dL Protein, Total 6.9 g/dL Albumin 4.0 g/dL Globulin 2.9 g/dL Bilirubin, Total 0.3 mg/dL ALT (SGPT) 14 U/L AST (SGOT) 17 U/L Alkaline Phosphatase 76 IU/L WBC 5.8 10 3/uL RBC 5.16 10 6/uL HGB 15.9 g/dL HCT 47.5 % MCV 92.1 fL MCH 30.8 pg MCHC 33.5 g/dL RDW 13.3 % Platelet Count 203 10 3/cmm MPV 10.1 fL Neutrophils 3.85 10 3/uL Lymphocytes 1.3 10 3/uL Monocytes 0.6 10 3/uL Eosinophils 0.1 10 3/uL Basophils 0.0 10 3/uL Neutrophil % 66.3 % Lymphocyte % 21.5 % Monocyte % 9.5 % Eosinophil % 1.9 % Basophils % 0.3 % NRBC % 0 % PSA 13.530 ng/mL Problem List: 1. Almont score 7 adenocarcinoma of the prostate, by clinical evaluation stage IIB (T2b, N0, M0) at initial diagnosis in March 2007. His baseline PSA was 5.4 ng/mL. He underwent cryotherapy, completed in 2007. In 2008 he underwent external beam radiation in association with androgen deprivation therapy for biochemical recurrence/progression. 2. Hypertension. 3. Hyperlipidemia. 4. He appears to have COPD by clinical evaluation. 5. He has a history of cardiac arrhythmia. 6. Degenerative arthritis. 7. History of PTSD. 8. There is family history of ovarian cancer involving a first-degree relative. His genetic screen showed no evidence for BRCA mutation. Problems Addressed with this Encounter and Plan: Patient with Almont score 7 adenocarcinoma of the prostate, by clinical evaluation stage IIB (T2b, N0, M0) at initial diagnosis in March 2007. His baseline PSA was 5.4 ng/mL. He underwent cryotherapy, completed in 2007. In 2008 he underwent external beam radiation in association with androgen deprivation therapy for biochemical recurrence. The radiation was completed in August 2008. He stopped androgen deprivation in December 2008 due to multiple side effects. In 2017 he began anti-androgen therapy with bicalutamide for further biochemical progression. There was no evidence of metastatic involvement on his staging imaging studies. He completed approximately 1 year of therapy. Staging PET/CT in February 2019 for rising PSA (9.28 ng/mL) reportedly showed abnormal activity within the prostate gland consistent with local recurrence and a tiny focus of increased activity in the central aspect of the C6 vertebral body. Significance of the latter was uncertain, as follow-up imaging was reportedly negative. In June 2019 he restarted bicalutamide 50 mg daily due to further increase in the PSA to 12.2 ng/mL. He did show response by PSA level, but he again had very poor tolerance for the antiandrogen therapy, and he stopped in March 2020. He has been feeling better generally since stopping the bicalutamide. Thus far during follow-up there has been just a slight further increase in the PSA level. In the absence of any evidence of symptomatic disease progression, he will continue on expectant management. He will have a repeat PSA level in 3 months and a follow-up visit in 6 months. Signed By: Terence Salazar M.D. <<Signature on File>>
== END 2020-11-08 07:32 | disposition home or self-care (01) ==
LOC: ONCMED 07:40
PROVIDERS: PCP Emergency Medicine Emergency Medical Services; Visit Provider Internal Medicine Medical Oncology
DX: Z08 Encounter for follow-up examination after completed treatment for malignant neoplasm (principal); Z85.46 Personal history of malignant neoplasm of prostate; I10 Essential (primary) hypertension; E78.5 Hyperlipidemia, unspecified; M19.90 Unspecified osteoarthritis, unspecified site; Z80.3 Family history of malignant neoplasm of breast; Z92.3 Personal history of irradiation
CPT/HCPCS: 36415; 80053; 84153; 85025; 99214

== ENCOUNTER 2021-02-07 08:37 | Outpatient (CLI) | payer OTHER, MEDICARE, SELFPAY | END 2021-02-07 08:38 | disposition home or self-care (01) | LOC: ONCMED 08:40 | PROVIDERS: PCP Emergency Medicine Emergency Medical Services; Visit Provider Internal Medicine Medical Oncology | DX: C61 Malignant neoplasm of prostate (principal) | CPT/HCPCS: 36415; 84153 ==

== ENCOUNTER 2021-03-07 09:01 | Outpatient (CLI) | payer OTHER, SELFPAY ==
[2021-03-07 09:44] LABS: Basophils % 0.7 %; Eosinophils # 0.1 10^3/uL (0.0-0.8); Hematocrit 46.8 % (42.0-52.0); Hemoglobin 15.7 g/dL (11.7-16.6); Lymphocytes # 1.2 10^3/uL (0.8-4.8); Lymphocytes % 20.6 %; Mean Corpuscular HGB Conc 33.5 g/dL (30.0-36.0); Mean Corpuscular Hemoglobin 30.6 pg (28.0-34.0); Mean Corpuscular Volume 91.2 fl (80-94); Mean Platelet Volume 9.7 fL (7.4-10.4); Monocytes # 0.5 10^3/uL (0.2-0.9); Monocytes % 8.7 %; Neutrophils # 4.08 10^3/uL (1.8-7.7); Neutrophils % 67.8 %; Nucleated Red Blood Cells % 0 %; Platelet Count 198 10^3/cmm (130-400); Red Blood Count 5.13 10^6/uL (4.1-5.3)
[2021-03-07 10:20] LABS: Alanine Aminotransferase 13 U/L (0-41); Albumin Level 4.2 g/dL (3.5-5.2); Alkaline Phosphatase 79 IU/L (40-130); Aspartate Amino Transferase 15 U/L (0-40); Blood Urea Nitrogen 24 mg/dL (8-23); Calcium 9.1 mg/dL (8.5-10.5); Carbon Dioxide 23 mmol/L (22-29); Chloride 103 mmol/L (98-107); Globulin 3.2 g/dL (1.3-4.6); Glucose 129 mg/dL (65-115); Osmolality Calculated 292 mOsm/kg (285-295); Sodium 138 mmol/L (136-145); Total Bilirubin 0.5 mg/dL (0.15-1.2); Total Protein 7.4 g/dL (6.6-8.7)
[2021-03-07 11:26] LABS: Testosterone Total 759.3 ng/dL (193-740)
--- NOTE | 2021-03-08 07:19 | ONC FU_ITS ---
Dr. Salazar Patient Follow-Up Note Patient: Steve Adames Unit #: [id number]: [id number] Dicatated By: Terence Salazar M.D.Date of Visit:Mar 07, 2021 Onc Med Follow-up/Prog Note Chief Complaint: Prostate cancer. History of Present Illness: This is a 71 year-old man with Black score 7 adenocarcinoma of the prostate, by clinical evaluation stage IIB (T2b, N0, M0) at initial diagnosis in March 2007. His baseline PSA was 5.4 ng/mL. The prostate cancer was initially diagnosed by transrectal ultrasound-guided biopsy on 04/10/2007 with pathology showing Enriqueta score 7 adenocarcinoma involving 6 of 6 specimens from the right lobe. Baseline PSA, as noted, was 5.4 ng/mL. He was treated with cryotherapy, completed in 2007. By 2008 the PSA had increased to 4.1, at which point he underwent external beam radiation in combination with an LHRH agonist. The radiation was completed in August 2008. He continued the androgen deprivation therapy until December 2008, having stopped at that point due to multiple toxicities including severe hot flashes and severe weakness/fatigue. He began anti-androgen therapy with bicalutamide in 2017. He had staging evaluation with CT scans of the chest and of the abdomen/pelvis and with bone scan in September 2017. None of these had shown any evidence of metastatic disease. He continued the bicalutamide for about a year. As of February 2019 his PSA had increased to 9.28 ng/mL. A PET/CT on 02/22/2019 reported abnormal activity within the prostate gland, consistent with local recurrence. A tiny punctate focus of increased activity was noted in the central aspect of the C6 vertebral body. Follow-up imaging of the neck was reportedly negative. As of June 2019 the PSA had further increased to 12.2 ng/mL. At that point he restarted bicalutamide 50 mg daily. He had follow-up with Dr. Cook on 09/13/2019. His repeat PSA level at that time was down to 5.1 ng/mL. I had seen him initially on 10/14/2019. At that time he preferred to limit his treatment to the bicalutamide, but he did agree to try increasing the dosage up to 50 mg 3 times daily. As of 11/15/2019 his PSA had decreased to 4.10 ng/mL, and by 12/20/2019 had further declined to 2.35 ng/mL. However, at that point he had reduced his bicalutamide to twice daily due to side effects, mainly fatigue. He was seen for a follow-up visit again on 01/20/2020. His PSA had increased just slightly, to 3.050 ng/mL. Due to fatigue, he had further decreased his bicalutamide to 50 mg daily. He was seen for a follow-up visit on 04/24/2020. He had stopped the bicalutamide 5 weeks earlier due to increasing fatigue. His PSA had further increased to 10.750 ng/mL, but he was feeling much better, and he opted to just continue follow-up on observation/expectant management. His other medical illnesses include hypertension, hyperlipidemia, COPD, and degenerative arthritis. He also has a history of cardiac arrhythmia and a history of PTSD. He also has a family history of ovarian carcinoma affecting a first-degree relative. He has a history of smoking for 55 years, in the range of 1 pack of cigarettes daily. He has cut down to 1/2 pack/day. INTERIM HISTORY: As of his follow-up visit on 07/24/2020 he was feeling much better generally, though he continued to have some fatigue. There was only a slight further increase in his PSA level, to 14.080 ng/mL. At that point he continued expectant management. His repeat PSA on 02/07/2021 showed a significant increase to 17.260 ng/mL. With that finding, he restarted bicalutamide at 50 mg daily. He is seen for a follow-up visit. He has been back on the bicalutamide for just one week. Thus far he seems to be tolerating it well. He says he is not overly energetic he sometimes feels a little weak. His ECOG score is 1. He has good appetite. He has no fever, night sweats, or hot flashes. He does have some sinus drainage and he always has a little bit of cough. His breathing, though, is pretty good. He does not complain of chest pain. He occasionally has heartburn. He has chronic constipation. He says his bladder function is a little worse, mainly with urgency. He has no significant joint or bone pain. He does not complain of headache. He occasionally has dizziness. He has no numbness/paresthesia or other focal neurologic symptoms. Medications: Bicalutamide 1 (50 mg) Tablet Oral daily, hydroCHLOROthiazide 0.5 Tablet (of 25 mg) Oral daily, Lisinopril 0.5 Tablet (of 10 mg) Oral daily Allergies: coreg Vital Signs: Performed on Mar 07, 2021 10:38 Height - 76.00 in Weight - 248.4 lbs (LOW) BSA - 2.43 sq.m BMI - 30.24 (HIGH) Temperature - 97.4 F (LOW) Pulse - 70 /min Respiration - 18 /min BP - 136/83 mm(hg) O2 Sat - 98 % Pain - 0 Fatigue - 2 Physical Examination: Constitutional - He looks good generally, Eyes - Sclerae nonicteric. Conjunctivae clear, ENMT - No lesions noted in the oral cavity, Hematologic/Lymphatic - No cervical, clavicular, or axillary adenopathy, Respiratory - Lungs sound clear, Cardiovascular - Heart rhythm is regular. There is no murmur, gallop, or rub noted, Abdomen - Soft. Liver and spleen are not enlarged. There is no abdominal mass or ascites noted and there is no inguinal adenopathy, Extremities - No edema, Neurologic - No focal neurologic deficits noted. Lab/Imaging: Test performed on Mar 07, 2021 09:20 Testosterone, Total 759.3 ng/dL Test performed on Mar 07, 2021 09:02 Sodium 138 mmol/L Potassium 4.0 mmol/L Chloride 103 mmol/L CO2 23 mmol/L Anion Gap 16.0 BUN 24 mg/dL Creatinine 0.9 mg/dL Cr Clearance (Est) 116.50 mL/min Glucose 129 mg/dL Osmolality - Calculated 292 mOsm/kg Calcium 9.1 mg/dL Protein, Total 7.4 g/dL Albumin 4.2 g/dL Globulin 3.2 g/dL Bilirubin, Total 0.5 mg/dL ALT (SGPT) 13 U/L AST (SGOT) 15 U/L Alkaline Phosphatase 79 IU/L WBC 6.0 10 3/uL RBC 5.13 10 6/uL HGB 15.7 g/dL HCT 46.8 % MCV 91.2 fl MCH 30.6 pg MCHC 33.5 g/dL RDW 13.0 % Platelet Count 198 10 3/cmm MPV 9.7 fL Neutrophils 4.08 10 3/uL Lymphocytes 1.2 10 3/uL Monocytes 0.5 10 3/uL Eosinophils 0.1 10 3/uL Basophils 0.0 10 3/uL Neutrophil % 67.8 % Lymphocyte % 20.6 % Monocyte % 8.7 % Eosinophil % 2.0 % Basophils % 0.7 % NRBC % 0 % PSA 11.480 ng/mL Problem List: 1. Black score 7 adenocarcinoma of the prostate, by clinical evaluation stage IIB (T2b, N0, M0) at initial diagnosis in March 2007. His baseline PSA was 5.4 ng/mL. He underwent cryotherapy, completed in 2007. In 2008 he underwent external beam radiation in association with androgen deprivation therapy for biochemical recurrence/progression. 2. Hypertension. 3. Hyperlipidemia. 4. He appears to have COPD by clinical evaluation. 5. He has a history of cardiac arrhythmia. 6. Degenerative arthritis. 7. History of PTSD. 8. There is family history of ovarian cancer involving a first-degree relative. His genetic screen showed no evidence for BRCA mutation. Problems Addressed with this Encounter and Plan: Patient with Black score 7 adenocarcinoma of the prostate, by clinical evaluation stage IIB (T2b, N0, M0) at initial diagnosis in March 2007. His baseline PSA was 5.4 ng/mL. He underwent cryotherapy, completed in 2007. In 2008 he underwent external beam radiation in association with androgen deprivation therapy for biochemical recurrence. The radiation was completed in August 2008. He stopped androgen deprivation in December 2008 due to multiple side effects. In 2017 he began anti-androgen therapy with bicalutamide for further biochemical progression. There was no evidence of metastatic involvement on his staging imaging studies. He completed approximately 1 year of therapy. Staging PET/CT in February 2019 for rising PSA (9.28 ng/mL) reportedly showed abnormal activity within the prostate gland consistent with local recurrence and a tiny focus of increased activity in the central aspect of the C6 vertebral body. Significance of the latter was uncertain, as follow-up imaging was reportedly negative. In June 2019 he restarted bicalutamide at 50 mg daily due to further increase in the PSA to 12.2 ng/mL. He did show response by PSA level, but he again had very poor tolerance for the antiandrogen therapy, and he stopped in March 2020. During follow-up his PSA level had increased very gradually. As of 02/07/2021 it had increased to 17.260 ng/mL, and 1 week ago he restarted bicalutamide 50 mg daily. Thus far he seems to be tolerating it well. His PSA level has come down to 11.480 ng/mL, but it is really uncertain to what extent that may actually reflect a treatment response. His testosterone level is mildly elevated, which is not unexpected in the absence of ADT therapy. At this point he is going to continue the bicalutamide. He is advised that as monotherapy the standard dosage is 150 mg daily. It will be up to him to decide what dosage she is able to tolerate. At least for now we will continue to monitor the PSA monthly and I will tentatively plan a follow-up visit in 3 months. Signed By: Terence Salazar M.D. <<Signature on File>>
== END 2021-03-07 09:02 | disposition home or self-care (01) ==
LOC: ONCMED 09:03
PROVIDERS: PCP Emergency Medicine Emergency Medical Services; Visit Provider Internal Medicine Medical Oncology
DX: C61 Malignant neoplasm of prostate (principal); I10 Essential (primary) hypertension; E78.5 Hyperlipidemia, unspecified; J44.9 Chronic obstructive pulmonary disease, unspecified; I49.9 Cardiac arrhythmia, unspecified; M19.90 Unspecified osteoarthritis, unspecified site; F43.10 Post-traumatic stress disorder, unspecified; Z80.41 Family history of malignant neoplasm of ovary; Z79.818 Long term (current) use of other agents affecting estrogen receptors and estrogen levels; Z92.21 Personal history of antineoplastic chemotherapy
CPT/HCPCS: 36415; 80053; 84153; 84403; 85025; 99214

== ENCOUNTER 2021-04-09 14:15 | Outpatient (CLI) | payer OTHER, SELFPAY | END 2021-04-09 14:16 | disposition home or self-care (01) | LOC: ONCMED 14:20 | PROVIDERS: PCP Emergency Medicine Emergency Medical Services; Visit Provider Internal Medicine Medical Oncology | DX: C61 Malignant neoplasm of prostate (principal) | CPT/HCPCS: 36415; 84153 ==

== ENCOUNTER 2021-05-01 14:21 | Outpatient (CLI) | payer OTHER, SELFPAY | END 2021-05-01 14:22 | disposition home or self-care (01) | LOC: ONCMED 14:26 | PROVIDERS: PCP Emergency Medicine Emergency Medical Services; Visit Provider Internal Medicine Medical Oncology | DX: C61 Malignant neoplasm of prostate (principal) | CPT/HCPCS: 36415; 84153 ==

== ENCOUNTER 2021-06-01 10:22 | Outpatient (CLI) | payer OTHER, SELFPAY ==
[2021-06-01 11:05] LABS: Basophils % 0.2 %; Eosinophils # 0.1 10^3/uL (0.0-0.8); Eosinophils % 0.7 %; Hematocrit 45.4 % (42.0-52.0); Hemoglobin 15.3 g/dL (11.7-16.6); Lymphocytes # 1.5 10^3/uL (0.8-4.8); Lymphocytes % 16.7 %; Mean Corpuscular HGB Conc 33.7 g/dL (30.0-36.0); Mean Corpuscular Hemoglobin 31.9 pg (28.0-34.0); Mean Corpuscular Volume 94.6 fl (80-94); Mean Platelet Volume 9.6 fL (7.4-10.4); Monocytes # 0.5 10^3/uL (0.2-0.9); Monocytes % 5.5 %; Neutrophils # 7.04 10^3/uL (1.8-7.7); Neutrophils % 76.7 %; Nucleated Red Blood Cells % 0 %; Platelet Count 213 10^3/cmm (130-400); Red Cell Distribution Width 12.8 % (12.1-15.1); White Blood Count 9.2 10^3/uL (4.0-10.0)
[2021-06-01 11:43] LABS: Slide Review Slide Review Perform
[2021-06-01 12:06] LABS: Alanine Aminotransferase 15 U/L (0-41); Albumin Level 4.4 g/dL (3.5-5.2); Alkaline Phosphatase 84 IU/L (40-130); Aspartate Amino Transferase 16 U/L (0-40); Blood Urea Nitrogen 21 mg/dL (8-23); Calcium 9.1 mg/dL (8.5-10.5); Carbon Dioxide 24 mmol/L (22-29); Chloride 99 mmol/L (98-107); Globulin 2.5 g/dL (1.3-4.6); Glucose 102 mg/dL (65-115); Lactate Dehydrogenase 142 U/L (135-225); Osmolality Calculated 283 mOsm/kg (285-295); Sodium 135 mmol/L (136-145); Total Bilirubin 0.4 mg/dL (0.15-1.2); Total Protein 6.9 g/dL (6.6-8.7)
== END 2021-06-01 10:23 | disposition home or self-care (01) ==
LOC: ONCMED 10:28
PROVIDERS: PCP Emergency Medicine Emergency Medical Services; Visit Provider Internal Medicine Medical Oncology
DX: C61 Malignant neoplasm of prostate (principal)
CPT/HCPCS: 36415; 80053; 83615; 84153; 85025

== ENCOUNTER 2021-06-06 06:39 | Outpatient (CLI) | payer OTHER, SELFPAY ==
--- NOTE | 2021-06-07 07:30 | ONC FU_ITS ---
Dr. Salazar Patient Follow-Up Note Patient: Steve Adames Unit #: [id number]: 1950 Dicatated By: Terence Salazar M.D.Date of Visit:Jun 06, 2021 Onc Med Follow-up/Prog Note Chief Complaint: Prostate cancer. History of Present Illness: This is a 71 year-old man with [place] score 7 adenocarcinoma of the prostate, by clinical evaluation stage IIB (T2b, N0, M0) at initial diagnosis in March 2007. His baseline PSA was 5.4 ng/mL. The prostate cancer was initially diagnosed by transrectal ultrasound-guided biopsy on 04/10/2007 with pathology showing Enriqueta score 7 adenocarcinoma involving 6 of 6 specimens from the right lobe. Baseline PSA, as noted, was 5.4 ng/mL. He was treated with cryotherapy, completed in 2007. By 2008 the PSA had increased to 4.1, at which point he underwent external beam radiation in combination with an LHRH agonist. The radiation was completed in August 2008. He continued the androgen deprivation therapy until December 2008, having stopped at that point due to multiple toxicities including severe hot flashes and severe weakness/fatigue. He began anti-androgen therapy with bicalutamide in 2017. He had staging evaluation with CT scans of the chest and of the abdomen/pelvis and with bone scan in September 2017. None of these had shown any evidence of metastatic disease. He continued the bicalutamide for about a year. As of February 2019 his PSA had increased to 9.28 ng/mL. A PET/CT on 02/22/2019 reported abnormal activity within the prostate gland, consistent with local recurrence. A tiny punctate focus of increased activity was noted in the central aspect of the C6 vertebral body. Follow-up imaging of the neck was reportedly negative. As of June 2019 the PSA had further increased to 12.2 ng/mL. At that point he restarted bicalutamide 50 mg daily. He had follow-up with Dr. Cook on 09/13/2019. His repeat PSA level at that time was down to 5.1 ng/mL. I had seen him initially on 10/14/2019. At that time he preferred to limit his treatment to the bicalutamide, but he did agree to try increasing the dosage up to 50 mg 3 times daily. As of 11/15/2019 his PSA had decreased to 4.10 ng/mL, and by 12/20/2019 had further declined to 2.35 ng/mL. However, at that point he had reduced his bicalutamide to twice daily due to side effects, mainly fatigue. He was seen for a follow-up visit again on 01/20/2020. His PSA had increased just slightly, to 3.050 ng/mL. Due to fatigue, he had further decreased his bicalutamide to 50 mg daily. He was seen for a follow-up visit on 04/24/2020. He had stopped the bicalutamide 5 weeks earlier due to increasing fatigue. His PSA had further increased to 10.750 ng/mL, but he was feeling much better, and he opted to just continue follow-up on observation/expectant management. His other medical illnesses include hypertension, hyperlipidemia, COPD, and degenerative arthritis. He also has a history of cardiac arrhythmia and a history of PTSD. He also has a family history of ovarian carcinoma affecting a first-degree relative. He has a history of smoking for 55 years, in the range of 1 pack of cigarettes daily. He has cut down to 1/2 pack/day. INTERIM HISTORY: As of his follow-up visit on 07/24/2020 he was feeling much better generally, though he continued to have some fatigue. There was only a slight further increase in his PSA level, to 14.080 ng/mL. At that point he continued expectant management. His repeat PSA on 02/07/2021 showed a significant increase to 17.260 ng/mL. With that finding, he restarted bicalutamide at 50 mg daily. As of his follow-up visit in February 2021 he has PSA was down to 11.480 ng/mL, and at that point he had agreed to increase the bicalutamide to 150 mg daily. His repeat PSA level on 04/09/2021 showed a further decrease to 3.500 ng/mL. He is seen for a follow-up visit. He has been feeling pretty good generally. He has been a tad on the weak side on the higher dosage of bicalutamide, but he is still doing light work. ECOG score is 1. His appetite is good. He has not had fever or night sweats. He has just very occasional hot flashes. He has been having sinus/nasal congestion at night. He has not had sore mouth or throat. He does have some cough, and he is still smoking 1 pack of cigarettes daily. His breathing, though, is pretty good, and he has not been having chest pain. He has no GI complaints other than occasional acid reflux. His bladder function remains adequate, though he does tend to stop and start. He has no significant joint or bone pain. He does not complain of headache. He occasionally has dizziness/lightheadedness. He has some numbness on the bottoms of his feet. Medications: Bicalutamide 1 (50 mg) Tablet Oral daily, hydroCHLOROthiazide 0.5 Tablet (of 25 mg) Oral daily, Lisinopril 0.5 Tablet (of 10 mg) Oral daily Allergies: coreg Vital Signs: Performed on Jun 06, 2021 10:42 Height - 76.00 in Weight - 246.6 lbs (LOW) BSA - 2.42 sq.m BMI - 30.02 (HIGH) Temperature - 97.4 F (LOW) Pulse - 72 /min Respiration - 17 /min BP - 146/81 mm(hg) (HIGH) O2 Sat - 98 % Pain - 0 Fatigue - 2 Physical Examination: Constitutional - He looks good generally, Eyes - Sclerae nonicteric. Conjunctivae clear, ENMT - No lesions noted in the oral cavity, Hematologic/Lymphatic - No cervical, clavicular, or axillary adenopathy, Respiratory - Lungs sound clear, Cardiovascular - Heart rhythm is regular. There is no murmur, gallop, or rub noted, Abdomen - Soft. Liver and spleen are not enlarged. There is no abdominal mass or ascites noted and there is no inguinal adenopathy, Extremities - No edema, Neurologic - No focal neurologic deficits noted. Lab/Imaging: CBC shows hemoglobin 15.3 g, white blood cell count 9200, and platelet count 213,000. Comprehensive metabolic profile shows stable renal function with BUN 21 and creatinine 1.1 mg/dL. Bilirubin and liver enzymes are normal. The PSA level is down to 3.000 ng/mL. Problem List: 1. [place] score 7 adenocarcinoma of the prostate, by clinical evaluation stage IIB (T2b, N0, M0) at initial diagnosis in March 2007. His baseline PSA was 5.4 ng/mL. He underwent cryotherapy, completed in 2007. In 2008 he underwent external beam radiation in association with androgen deprivation therapy for biochemical recurrence/progression. 2. Hypertension. 3. Hyperlipidemia. 4. He appears to have COPD by clinical evaluation. 5. He has a history of cardiac arrhythmia. 6. Degenerative arthritis. 7. History of PTSD. 8. There is family history of ovarian cancer involving a first-degree relative. His genetic screen showed no evidence for BRCA mutation. Problems Addressed with this Encounter and Plan: Patient with Enriqueta score 7 adenocarcinoma of the prostate, by clinical evaluation stage IIB (T2b, N0, M0) at initial diagnosis in March 2007. His baseline PSA was 5.4 ng/mL. He underwent cryotherapy, completed in 2007. In 2008 he underwent external beam radiation in association with androgen deprivation therapy for biochemical recurrence. The radiation was completed in August 2008. He stopped androgen deprivation in December 2008 due to multiple side effects. In 2017 he began anti-androgen therapy with bicalutamide for further biochemical progression. There was no evidence of metastatic involvement on his staging imaging studies. He completed approximately 1 year of therapy. Staging PET/CT in February 2019 for rising PSA (9.28 ng/mL) reportedly showed abnormal activity within the prostate gland consistent with local recurrence and a tiny focus of increased activity in the central aspect of the C6 vertebral body. Significance of the latter was uncertain, as follow-up imaging was reportedly negative. In June 2019 he restarted bicalutamide at 50 mg daily due to further increase in the PSA to 12.2 ng/mL. He did show response by PSA level, but he again had very poor tolerance for the antiandrogen therapy, and he stopped in March 2020. During follow-up his PSA level had increased very gradually. As of 02/07/2021 it was up to 17.260 ng/mL, and then restarted bicalutamide, initially at 50 mg daily. As of his followup visit on 03/07/2021 the bicalutamide dosage was increased to 150 mg daily. Thus far he has tolerated it well, and there has been a significant decline in the PSA level, currently to 3.000 ng/mL. It does appear to be stabilizing now. Overall, he appears to be doing well clinically. He continues bicalutamide 150 mg daily. I will recheck his PSA level in 3 months I will see him again in 6 months. Signed By: Terence Salazar M.D. <<Signature on File>>
== END 2021-06-06 06:40 | disposition home or self-care (01) ==
PROVIDERS: PCP Emergency Medicine Emergency Medical Services; Visit Provider Internal Medicine Medical Oncology
DX: R97.21 Rising PSA following treatment for malignant neoplasm of prostate (principal); Z85.46 Personal history of malignant neoplasm of prostate; Z79.818 Long term (current) use of other agents affecting estrogen receptors and estrogen levels; J44.9 Chronic obstructive pulmonary disease, unspecified; Z80.41 Family history of malignant neoplasm of ovary; F17.210 Nicotine dependence, cigarettes, uncomplicated
CPT/HCPCS: 99214

== ENCOUNTER 2021-06-29 09:28 | Emergency (ER) | payer OTHER, MEDICARE, SELFPAY ==
[2021-06-29 09:46] VITALS: BP 124/81; PULSE 76; RESP 16; O2SAT 97; BMI 29.2
[2021-06-29 10:19] LABS: Add Urine Microscopic? YES; Bilirubin Urine Neg (Negative); Blood Urine 3+ (Negative); Glucose Urine UA Norm (Normal); Ketones Urine Negative (Negative); Leukocyte Esterase Urine 2+ (Negative); Nitrate Urine Positive (Negative); Protein Urine 1+ (Negative); Specific Gravity, Urine 1.015 (1.005-1.030); Urine Appearance Cloudy (CLEAR); Urine Color Yellow (Yellow); Urobilinogen Urine Norm (Negative); pH Urine 8 (5-7)
[2021-06-29 10:20] LABS: Add Urine Culture? Yes; Bacteria Urine 2+ /hpf; RBC Urine 25-40 /hpf (0-2); Squamous Epithelial Cell Urine 0-4 /hpf (0-5); WBC Urine >100 /hpf (0-5)
--- NOTE | 2021-06-29 10:22 | ED_ITS ---
HPI - Male Genitourinary General: Chief complaint: Urogenital-Male Stated complaint: bad urinary pain Time Seen by Provider: 06/29/21 09:52 History of Present Illness: Patient frequency of urination patient states he is gets an UTI probably 2 times a year and he has 1 presently. He says Cipro did not seem to be helping any. Onset (ago): day(s) Associated symptoms: Deny nausea or vomiting Review of Systems Const: Denies: fever(s), chills or body aches Eyes: Denies: eye discomfort ENMT: Denies: throat pain Card: Denies: chest pain Resp: Denies: dyspnea GI: Denies: abdominal pain, nausea or vomiting : Reports: urinary frequency and urinary dribbling Skin/Breast: Denies: rash Neuro: Denies: headache(s) Psych: Denies: depression or suicidal ideation [facility] PFSH: Medical History (Updated 06/29/21 @ 10:19 by BARBARA Carlton) Hyperlipemia Hypertension Low back pain Prostate cancer Family History Family/Other Cancer CAD (coronary artery disease) Diabetes Hypertension Hyperlipidemia Social History Smoking and tobacco status: current every day smoker Alcohol intake: never Marital status: Current occupational status: retired History of recent travel: No Physical Exam Const: COMMON NORMALS: no acute distress, patient oriented x3 and alert HENMT: COMMON NORMALS: normocephalic HEAD & SCALP: normocephalic Eye: COMMON NORMALS: EOMs intact bilaterally Neck/C-Spine: COMMON NORMALS: no JVD Resp: COMMON NORMALS: normal respiratory effort and No use of accessory muscles Cardio: COMMON NORMALS: no JVD GI: INSPECTION: Yes normal to inspection Extremity: COMMON NORMALS: normal to inspection and full ROM Neuro: COMMON NORMALS: patient oriented x3 SENSORIUM/ORIENTATION: Yes alert Psych: COMMON NORMALS: mental status grossly normal Skin: COMMON NORMALS: no rashes or lesions noted GENERAL SKIN EXAM: no rashes or lesions noted Course Vital Signs: Vital signs: Vital Signs Pulse Rate 76 06/29/21 09:46 Respiratory Rate 16 06/29/21 09:46 Blood Pressure 124/81 06/29/21 09:46 Pulse Oximetry 97 06/29/21 09:46 MDM - Male Medical Decision Making Patient presents with UTI symptoms. Urinalysis supports UTI diagnosis. Patient has a history of these. Patient taken Cipro without relief. Patient will be changed to Bactrim follow-up primary care provider. Lab Data Laboratory Results Urine Color Yellow (Yellow) 06/29/21 09:50 Urine Appearance Cloudy (CLEAR) 06/29/21 09:50 Urine pH 8 (5-7) H 06/29/21 09:50 Ur Specific [place] 1.015 (1.005-1.030) 06/29/21 09:50 Urine Protein 1+ (Negative) H 06/29/21 09:50 Urine Glucose (UA) Norm (Normal) 06/29/21 09:50 Urine Ketones Negative (Negative) 06/29/21 09:50 Urine Blood 3+ (Negative) H 06/29/21 09:50 Urine Nitrate Positive (Negative) H 06/29/21 09:50 Urine Bilirubin Neg (Negative) 06/29/21 09:50 Urine Urobilinogen Norm mg/dL (Negative) 06/29/21 09:50 Ur Leukocyte Esterase 2+ (Negative) H 06/29/21 09:50 Urine RBC 25-40 /hpf (0-2) H 06/29/21 09:50 Urine WBC >100 /hpf (0-5) H 06/29/21 09:50 Ur Squamous Epith Cells 0-4 /hpf (0-5) H 06/29/21 09:50 Amorphous Sediment Not Reportable 06/29/21 09:50 Urine Bacteria 2+ /hpf (NONE) H 06/29/21 09:50 Discharge Plan Discharge Patient Disposition: Home Clinical Impression: Urinary tract infection Condition: Stable Prescriptions: New Bactrim DS 800-160 mg tablet 1 tab PO BID 7 Days Qty: 14 0RF Discontinued ciprofloxacin HCl 500 mg tablet 500 mg PO BID 10 Days Qty: 20 2RF No Action lisinopril 10 mg tablet 10 mg PO DAILY 0RF hydrochlorothiazide 25 mg tablet 25 mg PO DAILY 0RF Discharge Orders: Discharge ED (Routine); Ordered 06/29/21 Ordered By: Waldo Crockett Referrals: Philip Moreno DO [Primary Care Provider] - Discharge Diet: Usual diet Discharge Activity: Resume usual activity Patient Instructions: Urinary Tract Infection in Men (ED) Activity Restrictions/Additional Instructions: Follow-up with medical provider as directed. Take medications as prescribed. Return to the ER or your medical provider if condition worsens. Please read and understand discharge instructions. If any questions ask please. Coding Level of Care Code ED [employer] I Assembler for Karuna Vasquez
== END 2021-06-29 10:28 | disposition home or self-care (01) ==
PROVIDERS: Emergency Provider Nurse Practitioner Family; PCP Emergency Medicine Emergency Medical Services
DX: N39.0 Urinary tract infection, site not specified (principal); E78.5 Hyperlipidemia, unspecified; I10 Essential (primary) hypertension; Z85.46 Personal history of malignant neoplasm of prostate; F17.210 Nicotine dependence, cigarettes, uncomplicated
CPT/HCPCS: 81001; 87077; 87086; 87186; 99282

== ENCOUNTER 2021-07-03 09:00 | Emergency (ER) | payer OTHER, MEDICARE, SELFPAY ==
[2021-07-03 09:08] VITALS: BP 134/80; PULSE 80; RESP 16; TEMP 36.7; O2SAT 97; BMI 28.4
--- NOTE | 2021-07-03 09:13 | W.ED.MALEGU ---
HPI - Male Genitourinary General: Chief complaint: Urogenital-Male Stated complaint: Was in Fri for a uti now pure blood when urinating Time Seen by Provider: 07/03/21 09:05 Source: patient Mode of arrival: ambulatory Limitations: no limitations History of Present Illness: Patient is a nice 71-year-old male who presents to ED today with complaints of dysuria and hematuria. Patient states symptoms initially began around 10 days ago. Patient states around that time he began having cloudy urine and some mild dysuria. He states he has a history of UTIs so attributed his symptoms to this. He states he was given a prescription for ciprofloxacin previously and instructed to take this at the start of symptoms. He states he took roughly 5 days of ciprofloxacin without any improvement in symptoms. Patient was here in our ED 4 days ago and provider at that time switched to ciprofloxacin to Bactrim. He has been taking this as prescribed and still not improving. He states the dysuria is worsening and has now noticed hematuria. Patient states he is still able to urinate but states he voids less volume more often. He is not having any fevers or chills. No flank pain. He does have an appointment with Dr. Cook's office tomorrow. Complaint: dysuria and other (hematuria) Onset (ago): day(s) Duration: constant Quality: burning Exacerbating factors: urination Associated symptoms: Reports dysuria and hematuria; Deny nausea, urinary incontinence or vomiting Review of Systems Const: Denies: fever(s), chills, body aches, fatigue or malaise GI: Denies: nausea, vomiting or diarrhea : Reports: dysuria, urinary frequency and hematuria; Denies: flank pain, urinary hesitancy, urinary dribbling, difficulty starting urination, oliguria, urinary incontinence, testicular pain or scrotal swelling Musc: Denies: back pain Skin/Breast: Denies: rash PFSH ED PFSH: Medical History (Updated 07/03/21 @ 09:35 by MACARIO Rubin) Hyperlipemia Hypertension Low back pain Prostate cancer Family History Family/Other Cancer CAD (coronary artery disease) Diabetes Hypertension Hyperlipidemia Social History Smoking and tobacco status: current every day smoker Alcohol intake: never Marital status: Current occupational status: retired History of recent travel: No Physical Exam Const: COMMON NORMALS: no acute distress, average body habitus, patient oriented x3, no limitations, healthy appearing, alert and well nourished GENERAL APPEARANCE: cooperative Resp: COMMON NORMALS: normal respiratory effort and clear to auscultation bilaterally AUSCULTATION: clear to auscultation bilaterally Cardio: COMMON NORMALS: regular rate and regular rhythm RATE: regular rate RHYTHM: regular rhythm GI: COMMON NORMALS: Normal to inspection, nondistended, normoactive bowel sounds present, Soft to palpation, No hepatosplenomegaly present and no masses INSPECTION: Yes normal to inspection PALPATION: Yes Soft to palpation, Yes Tenderness to palpation present (GI) (mild suprapubic-non surgical exam), No Guarding due to palpation present (GI), No Rigid due to palpation and Yes No hepatosplenomegaly present : COMMON NORMALS: Yes no CVA tenderness BLADDER/KIDNEY EXAM: Yes no CVA tenderness Back/Pelvis: COMMON NORMALS: no CVA tenderness Neuro: COMMON NORMALS: patient oriented x3 SENSORIUM/ORIENTATION: Yes alert Course Vital Signs: Vital signs: Vital Signs Temperature 98.1 F 07/03/21 09:08 Pulse Rate 88 07/03/21 09:18 Respiratory Rate 14 07/03/21 09:18 Blood Pressure 145/84 07/03/21 09:18 Pulse Oximetry 98 07/03/21 09:18 MDM - Male Medical Decision Making Urine culture from previous visit growing Proteus mirabilis resistant to Cipro and Bactrim. Sensitive to cephalosporins so given IV Rocephin here and will place on Ceftin. BUN/Cr slightly elevated probably secondary to Bactrim use. Patient not having any urinary retention. Was given a liter of fluids here. Recommend follow up with Joey's office tomorrow as scheduled. Patient requesting something to help with burning so will write for Pyridium. Lab Data : 07/03/21 09:19 07/03/21 09:19 Laboratory Results WBC 9.9 10^3/uL (4.0-10.0) 07/03/21 09:19 RBC 4.63 10^6/uL (4.1-5.3) 07/03/21 09:19 Hgb 14.8 g/dL (11.7-16.6) 07/03/21 09:19 Hct 42.9 % (42.0-52.0) 07/03/21 09:19 MCV 92.7 fl (80-94) 07/03/21 09:19 MCH 32.0 pg (28.0-34.0) 07/03/21 09:19 MCHC 34.5 g/dL (30.0-36.0) 07/03/21 09:19 RDW 12.9 % (12.1-15.1) 07/03/21 09:19 Plt Count 260 10^3/cmm (130-400) 07/03/21 09:19 MPV 9.0 fL (7.4-10.4) 07/03/21 09:19 Neut % (Auto) 80.7 % 07/03/21 09:19 Lymph % (Auto) 10.5 % 07/03/21 09:19 [place] % (Auto) 6.9 % 07/03/21 09:19 Eos % (Auto) 1.1 % 07/03/21 09:19 Baso % (Auto) 0.4 % 07/03/21 09:19 Neut # (Auto) 8.02 10^3/uL (1.8-7.7) H 07/03/21 09:19 Lymph # (Auto) 1.0 10^3/uL (0.8-4.8) 07/03/21 09:19 [place] # (Auto) 0.7 10^3/uL (0.2-0.9) 07/03/21 09:19 Eos # (Auto) 0.1 10^3/uL (0.0-0.8) 07/03/21 09:19 Baso # (Auto) 0.0 10^3/uL (0.0-0.1) 07/03/21 09:19 Nucleated RBC % (auto) 0 % 07/03/21 09:19 Nucleated RBCs # 0.0 /100WBC 07/03/21 09:19 Sodium 137 mmol/L (136-145) 07/03/21 09:19 Potassium 4.0 mmol/L (3.5-5.1) 07/03/21 09:19 Chloride 102 mmol/L (98-107) 07/03/21 09:19 Carbon Dioxide 20 mmol/L (22-29) L 07/03/21 09:19 Anion Gap 19.0 (5-19) 07/03/21 09:19 BUN 41 mg/dL (8-23) H 07/03/21 09:19 Creatinine 1.6 mg/dL (0.7-1.2) H 07/03/21 09:19 GFR Calculation Not Reportable 07/03/21 09:19 Glucose 122 mg/dL (65-115) H 07/03/21 09:19 Calculated Osmolality 295 mOsm/kg (285-295) 07/03/21 09:19 Calcium 10.0 mg/dL (8.5-10.5) 07/03/21 09:19 Total Bilirubin 0.4 mg/dL (0.15-1.2) 07/03/21 09:19 AST 19 U/L (0-40) 07/03/21 09:19 ALT 16 U/L (0-41) 07/03/21 09:19 Alkaline Phosphatase 92 IU/L (40-130) 07/03/21 09:19 Total Protein 8.5 g/dL (6.6-8.7) 07/03/21 09:19 Albumin 4.8 g/dL (3.5-5.2) 07/03/21 09:19 Globulin 3.7 g/dL (1.3-4.6) 07/03/21 09:19 Urine Color Red (Yellow) 07/03/21 09:19 Urine Appearance Bloody (CLEAR) A 07/03/21 09:19 Urine pH 9 (5-7) H 07/03/21 09:19 Ur Specific [place] 1.015 (1.005-1.030) 07/03/21 09:19 Urine Protein Trace (Negative) 07/03/21 09:19 Urine Glucose (UA) Norm (Normal) 07/03/21 09:19 Urine Ketones Negative (Negative) 07/03/21 09:19 Urine Blood 3+ (Negative) H 07/03/21 09:19 Urine Nitrate Positive (Negative) H 07/03/21 09:19 Urine Bilirubin Neg (Negative) 07/03/21 09:19 Prot Sulfosalicylic Acd Negative (Negative) 07/03/21 09:19 Urine Urobilinogen Norm mg/dL (Negative) 07/03/21 09:19 Ur Leukocyte Esterase 2+ (Negative) H 07/03/21 09:19 Urine RBC Too numerous to cnt /hpf (0-2) H 07/03/21 09:19 Urine WBC >100 /hpf (0-5) H 07/03/21 09:19 Ur Squamous Epith Cells None /hpf (0-5) 07/03/21 09:19 Amorphous Sediment Not Reportable 07/03/21 09:19 Urine Bacteria 2+ /hpf (NONE) H 07/03/21 09:19 Discharge Plan Discharge Patient Disposition: Home Clinical Impression: Urinary tract infection Qualifiers: Urinary tract infection type: acute cystitis Hematuria presence: with hematuria Qualified Code(s): N30.01 - Acute cystitis with hematuria Condition: Stable Prescriptions: New cefuroxime axetil 500 mg tablet 500 mg PO BID 7 Days Qty: 14 0RF Pyridium 100 mg tablet 100 mg PO Q8H Qty: 6 0RF Discontinued sulfamethoxazole-trimethoprim [Bactrim DS] 800-160 mg tablet 1 tab PO BID 7 Days Qty: 14 0RF No Action lisinopril 10 mg tablet 10 mg PO DAILY 0RF hydrochlorothiazide 25 mg tablet 25 mg PO DAILY 0RF Discharge Orders: Discharge ED (Routine); Ordered 07/03/21 Ordered By: Simona Gonzalez Referrals: Philip Moreno DO [Primary Care Provider] - Patient Instructions: Urinary Tract Infection in Men (DC) Activity Restrictions/Additional Instructions: Please follow up with Dr. Cook's office tomorrow as nory. As discussed you need to return to the emergency department for urinary retention/inability to urinate, fevers greater than 100.4, repetitive episodes of vomiting, severe flank pain, or any other concerns you may have. Coding Level of Care Code ED Manager Architecture for [employer] Fwd Exam Detailed
[2021-07-03 09:18] VITALS: BP 145/84; PULSE 88; RESP 14; O2SAT 98
[2021-07-03 09:28] LABS: Basophils % 0.4 %; Eosinophils # 0.1 10^3/uL (0.0-0.8); Eosinophils % 1.1 %; Hematocrit 42.9 % (42.0-52.0); Hemoglobin 14.8 g/dL (11.7-16.6); Lymphocytes % 10.5 %; Mean Corpuscular HGB Conc 34.5 g/dL (30.0-36.0); Mean Corpuscular Volume 92.7 fl (80-94); Monocytes # 0.7 10^3/uL (0.2-0.9); Monocytes % 6.9 %; Neutrophils # 8.02 10^3/uL (1.8-7.7); Neutrophils % 80.7 %; Nucleated Red Blood Cells % 0 %; Platelet Count 260 10^3/cmm (130-400); Red Blood Count 4.63 10^6/uL (4.1-5.3); Red Cell Distribution Width 12.9 % (12.1-15.1); White Blood Count 9.9 10^3/uL (4.0-10.0)
[2021-07-03] MEDS: cefTRIAXone 1,000 MG in sodium chloride 0.9% (plus) 50 ML 100 MG IV (09:37)
[2021-07-03 09:53] LABS: Blood Urine 3+ (Negative); Glucose Urine UA Norm (Normal); Ketones Urine Negative (Negative); Nitrate Urine Positive (Negative); Protein Urine Trace (Negative); Specific Gravity, Urine 1.015 (1.005-1.030); Urine Appearance Bloody (CLEAR); Urine Color Red (Yellow); pH Urine 9 (5-7)
[2021-07-03 09:54] LABS: Add Urine Microscopic? YES; Bilirubin Urine Neg (Negative); Leukocyte Esterase Urine 2+ (Negative); Sulfosalicylic Acid Urine Negative (Negative); Urobilinogen Urine Norm (Negative)
[2021-07-03 09:55] LABS: Add Urine Culture? Yes; Bacteria Urine 2+ /hpf; RBC Urine TOO NUMEROUS TO CNT /hpf (0-2); WBC Urine >100 /hpf (0-5)
[2021-07-03 10:00] LABS: Alanine Aminotransferase 16 U/L (0-41); Albumin Level 4.8 g/dL (3.5-5.2); Alkaline Phosphatase 92 IU/L (40-130); Aspartate Amino Transferase 19 U/L (0-40); Blood Urea Nitrogen 41 mg/dL (8-23); Carbon Dioxide 20 mmol/L (22-29); Chloride 102 mmol/L (98-107); Globulin 3.7 g/dL (1.3-4.6); Glucose 122 mg/dL (65-115); Osmolality Calculated 295 mOsm/kg (285-295); Sodium 137 mmol/L (136-145); Total Bilirubin 0.4 mg/dL (0.15-1.2); Total Protein 8.5 g/dL (6.6-8.7)
[2021-07-03 10:03] LABS: Creatinine Clr Calc Pharmacy 56.4177
[2021-07-03] MEDS: lactated ringers 1,000 ML 999 ML IV (10:16)
[2021-07-03 11:17] VITALS: BP 145/84; PULSE 87; RESP 14; O2SAT 97
--- NOTE | 2021-07-06 08:35 | PC.SOCIAL ---
Sending records to [place] [facility] and came across second urine culture showing ESBL and resistant to many medications. pt was to see Dr Cook on 07/04 per Joey office but this was cancelled by patient he thought was feeling better per clinic staff. Called patient to update him that medication ordered last seen in ED was resistant to bacteria and he states he thought was getting better couldnt take that med anyway made his stomach ache but he is having ongoing symptoms. Advised pt to call Dr Cook and get in there or try to get in with PCP Dr Moreno. Asked [facility] to see if Dr Moreno nurse can arrange an appt to be seen as well. Will send micro report and dc infor to Dr Cook office in case he can be seen there today. [facility] updated this nurse he has notified pt PACT team of concern and request he was to see pcp yesterday but due to weather appt was cancelled by clinic.
== END 2021-07-03 11:18 | disposition home or self-care (01) ==
PROVIDERS: Emergency Provider Physician Assistant; PCP Emergency Medicine Emergency Medical Services
DX: N30.01 Acute cystitis with hematuria (principal); E78.5 Hyperlipidemia, unspecified; I10 Essential (primary) hypertension; Z85.46 Personal history of malignant neoplasm of prostate; F17.210 Nicotine dependence, cigarettes, uncomplicated
CPT/HCPCS: 80053; 81001; 85025; 87077; 87086; 87186; 96365; 99284; J0696

== ENCOUNTER → 2021-07-06 10:43 | Outpatient (BNVA) | payer OTHER, MEDICARE, SELFPAY | PROVIDERS: PCP Emergency Medicine Emergency Medical Services; Visit Provider Urology | DX: N40.1 Benign prostatic hyperplasia with lower urinary tract symptoms (principal); N30.01 Acute cystitis with hematuria; R33.8 Other retention of urine; C61 Malignant neoplasm of prostate | CPT/HCPCS: 81003 ==

== ENCOUNTER 2021-09-03 13:27 | Outpatient (CLI) | payer OTHER, MEDICARE, SELFPAY | END 2021-09-03 13:28 | disposition home or self-care (01) | PROVIDERS: PCP Emergency Medicine Emergency Medical Services; Visit Provider Internal Medicine Medical Oncology | DX: C61 Malignant neoplasm of prostate (principal) | CPT/HCPCS: 36415; 84153 ==

== ENCOUNTER → 2021-10-22 14:15 | Outpatient (BNVA) | payer OTHER, SELFPAY | PROVIDERS: PCP Emergency Medicine Emergency Medical Services; Visit Provider Urology | DX: N40.1 Benign prostatic hyperplasia with lower urinary tract symptoms (principal); N30.01 Acute cystitis with hematuria; R33.8 Other retention of urine; C61 Malignant neoplasm of prostate; N36.5 Urethral false passage | CPT/HCPCS: 52000; 99214 ==

== ENCOUNTER 2022-01-07 12:20 | Oncology outpatient (recurring) (ONCR) | payer OTHER, MEDICARE, SELFPAY ==
[2022-01-07 12:35] LABS: Basophils % 0.5 %; Eosinophils # 0.1 10^3/uL (0.0-0.8); Eosinophils % 1.7 %; Hematocrit 43.3 % (42.0-52.0); Hemoglobin 14.5 g/dL (11.7-16.6); Lymphocytes # 1.6 10^3/uL (0.8-4.8); Lymphocytes % 18.8 %; Mean Corpuscular HGB Conc 33.5 g/dL (30.0-36.0); Mean Corpuscular Hemoglobin 31.7 pg (28.0-34.0); Mean Corpuscular Volume 94.7 fl (80-94); Mean Platelet Volume 9.4 fL (7.4-10.4); Monocytes # 0.5 10^3/uL (0.2-0.9); Monocytes % 5.7 %; Neutrophils # 6.05 10^3/uL (1.8-7.7); Neutrophils % 72.9 %; Nucleated Red Blood Cells % 0 %; Platelet Count 221 10^3/cmm (130-400); Red Blood Count 4.57 10^6/uL (4.1-5.3); Red Cell Distribution Width 12.9 % (12.1-15.1); White Blood Count 8.3 10^3/uL (4.0-10.0)
[2022-01-07 13:01] LABS: Alanine Aminotransferase 14 U/L (0-41); Alkaline Phosphatase 82 U/L (40-130); Blood Urea Nitrogen 22 mg/dL (8-23); Calcium 9.2 mg/dL (8.5-10.5); Carbon Dioxide 26 mmol/L (22-29); Chloride 105 mmol/L (98-107); Globulin 3.2 g/dL (1.3-4.6); Glucose 141 mg/dL (65-115); Osmolality Calculated 296 mOsm/kg (285-295); Sodium 140 mmol/L (136-145); Total Bilirubin 0.3 mg/dL (0.15-1.2); Total Protein 7.2 g/dL (6.6-8.7)
[2022-01-07 13:02] LABS: Anion Gap 13.1 (5-19); Aspartate Amino Transferase 18 U/L (0-40); Potassium 4.1 mmol/L (3.5-5.1)
== END 2022-01-09 23:59 | disposition home or self-care (01) ==
LOC: ONCMED 12:21
PROVIDERS: Nurse Practitioner; PCP Emergency Medicine Emergency Medical Services; Visit Provider Internal Medicine Medical Oncology
DX: Z08 Encounter for follow-up examination after completed treatment for malignant neoplasm (principal); Z85.46 Personal history of malignant neoplasm of prostate; R97.21 Rising PSA following treatment for malignant neoplasm of prostate; F17.210 Nicotine dependence, cigarettes, uncomplicated; Z92.21 Personal history of antineoplastic chemotherapy
CPT/HCPCS: 36415; 80053; 84153; 85025; 99214

== ENCOUNTER → 2022-01-24 09:07 | Outpatient (BNVA) | payer OTHER, SELFPAY | PROVIDERS: PCP Emergency Medicine Emergency Medical Services; Visit Provider Urology | DX: N40.1 Benign prostatic hyperplasia with lower urinary tract symptoms (principal); C61 Malignant neoplasm of prostate; R33.9 Retention of urine, unspecified | CPT/HCPCS: 51798; 99213 ==

== ENCOUNTER 2022-05-15 13:28 | Oncology outpatient (recurring) (ONCR) | payer OTHER, SELFPAY ==
[2022-05-15 14:02] LABS: Basophils % 0.6 %; Eosinophils # 0.1 10^3/uL (0.0-0.8); Eosinophils % 1.9 %; Hematocrit 45.2 % (42.0-52.0); Hemoglobin 15.1 g/dL (11.7-16.6); Lymphocytes # 1.3 10^3/uL (0.8-4.8); Lymphocytes % 20.9 %; Mean Corpuscular HGB Conc 33.4 g/dL (30.0-36.0); Mean Corpuscular Hemoglobin 31.1 pg (28.0-34.0); Mean Platelet Volume 9.8 fL (7.4-10.4); Monocytes # 0.6 10^3/uL (0.2-0.9); Monocytes % 8.9 %; Neutrophils # 4.33 10^3/uL (1.8-7.7); Neutrophils % 67.4 %; Nucleated Red Blood Cells % 0 %; Platelet Count 221 10^3/cmm (130-400); Red Blood Count 4.86 10^6/uL (4.1-5.3); Red Cell Distribution Width 13.3 % (12.1-15.1); White Blood Count 6.4 10^3/uL (4.0-10.0)
[2022-05-15 14:40] LABS: Alanine Aminotransferase 18 U/L (0-41); Alkaline Phosphatase 86 U/L (40-130); Anion Gap 13.1 (5-19); Aspartate Amino Transferase 23 U/L (0-40); Blood Urea Nitrogen 22 mg/dL (8-23); Calcium 9.4 mg/dL (8.5-10.5); Carbon Dioxide 26 mmol/L (22-29); Chloride 102 mmol/L (98-107); Globulin 3.3 g/dL (1.3-4.6); Glucose 94 mg/dL (65-115); Osmolality Calculated 287 mOsm/kg (285-295); Potassium 4.1 mmol/L (3.5-5.1); Sodium 137 mmol/L (136-145); Total Bilirubin 0.3 mg/dL (0.15-1.2); Total Protein 7.3 g/dL (6.6-8.7)
== END 2022-06-11 23:59 | disposition home or self-care (01) ==
PROVIDERS: PCP Emergency Medicine Emergency Medical Services; Visit Provider Internal Medicine Medical Oncology
DX: C61 Malignant neoplasm of prostate (principal); R97.21 Rising PSA following treatment for malignant neoplasm of prostate; Z79.818 Long term (current) use of other agents affecting estrogen receptors and estrogen levels; Z92.3 Personal history of irradiation
CPT/HCPCS: 36415; 80053; 84153; 85025; 99214

== ENCOUNTER 2022-11-18 11:11 | Oncology outpatient (recurring) (ONCR) | payer OTHER, SELFPAY ==
[2022-11-18 11:37] VITALS: BP 132/82; PULSE 73; RESP 18; TEMP 36.7; O2SAT 96
[2022-11-18 11:49] LABS: Basophils # 0.1 10^3/uL (0.0-0.1); Basophils % 0.7 %; Eosinophils # 0.1 10^3/uL (0.0-0.8); Eosinophils % 1.4 %; Hemoglobin 15.5 g/dL (11.7-16.6); Lymphocytes # 1.5 10^3/uL (0.8-4.8); Lymphocytes % 21.3 %; Mean Corpuscular Hemoglobin 30.2 pg (28.0-34.0); Mean Corpuscular Volume 91.4 fl (80-94); Mean Platelet Volume 9.6 fL (7.4-10.4); Monocytes # 0.6 10^3/uL (0.2-0.9); Monocytes % 7.9 %; Neutrophils % 68.6 %; Nucleated Red Blood Cells % 0 %; Platelet Count 206 10^3/cmm (130-400); Red Blood Count 5.14 10^6/uL (4.1-5.3)
[2022-11-18 12:18] LABS: Alanine Aminotransferase 18 U/L (0-41); Albumin Level 4.1 g/dL (3.5-5.2); Alkaline Phosphatase 88 U/L (40-130); Anion Gap 11.8 (5-19); Aspartate Amino Transferase 19 U/L (0-40); Blood Urea Nitrogen 20 mg/dL (8-23); Calcium 8.7 mg/dL (8.5-10.5); Carbon Dioxide 25 mmol/L (22-29); Chloride 98 mmol/L (98-107); Globulin 3.2 g/dL (1.3-4.6); Glucose 86 mg/dL (65-115); Osmolality Calculated 274 mOsm/kg (285-295); Potassium 3.8 mmol/L (3.5-5.1); Sodium 131 mmol/L (136-145); Total Bilirubin 0.3 mg/dL (0.15-1.2); Total Protein 7.3 g/dL (6.6-8.7)
[2022-11-18] MEDS: lidocaine 1% INJ 20 mL MDV (mL) SUBCUT (15:21)
[2022-11-18] MEDS: goserelin acetate 3.6 mg Implant SUBCUT (15:41)
== END 2022-12-09 23:59 | disposition home or self-care (01) ==
PROVIDERS: PCP Emergency Medicine Emergency Medical Services; Visit Provider Internal Medicine Medical Oncology
DX: C61 Malignant neoplasm of prostate (principal); R97.21 Rising PSA following treatment for malignant neoplasm of prostate; Z79.818 Long term (current) use of other agents affecting estrogen receptors and estrogen levels; Z92.3 Personal history of irradiation; R53.0 Neoplastic (malignant) related fatigue
CPT/HCPCS: 36415; 80053; 84153; 85025; 96372; 96402; 99214; J9202

== ENCOUNTER → 2022-11-27 14:19 | Outpatient (BNVA) | payer OTHER, SELFPAY | PROVIDERS: PCP Emergency Medicine Emergency Medical Services; Visit Provider Nurse Practitioner Family | DX: L21.8 Other seborrheic dermatitis (principal) | CPT/HCPCS: 17000; 17003; 99214 ==

== ENCOUNTER 2022-12-19 08:50 | Oncology outpatient (recurring) (ONCR) | payer OTHER, SELFPAY ==
[2022-12-19 08:57] VITALS: BP 177/90; PULSE 62; RESP 18; TEMP 36.3; O2SAT 98
[2022-12-19 09:04] LABS: Basophils % 0.7 %; Eosinophils # 0.1 10^3/uL (0.0-0.8); Eosinophils % 2.3 %; Hematocrit 44.9 % (42.0-52.0); Hemoglobin 15.3 g/dL (11.7-16.6); Lymphocytes # 1.3 10^3/uL (0.8-4.8); Lymphocytes % 21.3 %; Mean Corpuscular HGB Conc 34.1 g/dL (30.0-36.0); Mean Corpuscular Hemoglobin 31.1 pg (28.0-34.0); Mean Corpuscular Volume 91.3 fl (80-94); Mean Platelet Volume 9.5 fL (7.4-10.4); Monocytes # 0.5 10^3/uL (0.2-0.9); Monocytes % 7.9 %; Neutrophils # 4.01 10^3/uL (1.8-7.7); Neutrophils % 67.3 %; Nucleated Red Blood Cells % 0 %; Platelet Count 179 10^3/cmm (130-400); Red Blood Count 4.92 10^6/uL (4.1-5.3); Red Cell Distribution Width 12.4 % (12.1-15.1)
[2022-12-19 09:43] LABS: Alanine Aminotransferase 19 U/L (0-41); Albumin Level 4.1 g/dL (3.5-5.2); Alkaline Phosphatase 82 U/L (40-130); Aspartate Amino Transferase 25 U/L (0-40); Blood Urea Nitrogen 24 mg/dL (8-23); Calcium 9.4 mg/dL (8.5-10.5); Carbon Dioxide 24 mmol/L (22-29); Chloride 104 mmol/L (98-107); Globulin 3.3 g/dL (1.3-4.6); Glucose 105 mg/dL (65-115); Osmolality Calculated 290 mOsm/kg (285-295); Sodium 138 mmol/L (136-145); Total Bilirubin 0.3 mg/dL (0.15-1.2); Total Protein 7.4 g/dL (6.6-8.7)
[2022-12-19 09:49] LABS: Anion Gap 14.6 (5-19); Potassium 4.6 mmol/L (3.5-5.1)
[2022-12-19] MEDS: lidocaine 1% INJ 20 mL MDV (mL) SUBCUT (11:23)
[2022-12-19] MEDS: goserelin acetate 10.8 mg Implant SUBCUT (11:25)
== END 2023-01-09 23:59 | disposition home or self-care (01) ==
PROVIDERS: PCP Emergency Medicine Emergency Medical Services; Visit Provider Internal Medicine Medical Oncology
DX: C61 Malignant neoplasm of prostate (principal); R97.21 Rising PSA following treatment for malignant neoplasm of prostate; Z79.818 Long term (current) use of other agents affecting estrogen receptors and estrogen levels; Z92.3 Personal history of irradiation; Z79.52 Long term (current) use of systemic steroids; R23.2 Flushing; G62.9 Polyneuropathy, unspecified; Z79.891 Long term (current) use of opiate analgesic
CPT/HCPCS: 36415; 80053; 84153; 85025; 96372; 96402; 99214; J9202

== ENCOUNTER 2023-03-13 11:10 | Oncology outpatient (recurring) (ONCR) | payer OTHER, SELFPAY ==
[2023-03-13 12:00] VITALS: BP 119/81; PULSE 68; RESP 17; TEMP 36.5; O2SAT 99
[2023-03-13 12:22] LABS: Basophils % 0.5 %; Eosinophils # 0.2 10^3/uL (0.0-0.8); Eosinophils % 1.9 %; Hematocrit 39.9 % (37-53); Lymphocytes # 1.8 10^3/uL (0.8-4.8); Lymphocytes % 22.4 %; Mean Corpuscular HGB Conc 34.1 g/dL (30-55); Mean Corpuscular Hemoglobin 31.9 pg (27-33); Mean Corpuscular Volume 93.4 fl (82-101); Mean Platelet Volume 9.3 fL (7.4-10.4); Monocytes # 0.5 10^3/uL (0.2-0.9); Monocytes % 6.8 %; Neutrophils # 5.37 10^3/uL (1.8-7.7); Neutrophils % 67.9 %; Nucleated Red Blood Cells % 0 %; Platelet Count 237 10^3/cmm (157-399); Red Blood Count 4.27 10^6/uL (3.85-5.65); Red Cell Distribution Width 13.2 % (12.1-15.1); White Blood Count 7.91 10^3/uL (3.29-11.43)
[2023-03-13 12:54] LABS: Alanine Aminotransferase 19 U/L (0-41); Albumin Level 4.6 g/dL (3.5-5.2); Alkaline Phosphatase 95 U/L (40-130); Anion Gap 13.1 (5-19); Aspartate Amino Transferase 19 U/L (0-40); Blood Urea Nitrogen 25 mg/dL (8-23); Carbon Dioxide 27 mmol/L (22-29); Chloride 101 mmol/L (98-107); Globulin 3.5 g/dL (1.3-4.6); Glucose 78 mg/dL (65-115); Osmolality Calculated 287 mOsm/kg (285-295); Potassium 4.1 mmol/L (3.5-5.1); Sodium 137 mmol/L (136-145); Total Bilirubin 0.3 mg/dL (0.15-1.2); Total Protein 8.1 g/dL (6.6-8.7)
[2023-03-13] MEDS: lidocaine 1% INJ 20 mL MDV (mL) SUBCUT (13:40)
[2023-03-13] MEDS: goserelin acetate 10.8 mg Implant SUBCUT (13:58)
== END 2023-04-10 23:59 | disposition home or self-care (01) ==
PROVIDERS: PCP Emergency Medicine Emergency Medical Services; Visit Provider Internal Medicine Medical Oncology
DX: C61 Malignant neoplasm of prostate (principal); R97.21 Rising PSA following treatment for malignant neoplasm of prostate; Z79.818 Long term (current) use of other agents affecting estrogen receptors and estrogen levels; Z92.3 Personal history of irradiation; Z51.11 Encounter for antineoplastic chemotherapy
CPT/HCPCS: 36415; 80053; 84153; 85025; 99214; J9202

== ENCOUNTER → 2023-05-28 10:13 | Outpatient (BNVA) | payer OTHER, SELFPAY | PROVIDERS: PCP Emergency Medicine Emergency Medical Services; Visit Provider Nurse Practitioner Family | DX: L57.0 Actinic keratosis (principal); L21.8 Other seborrheic dermatitis; L57.8 Other skin changes due to chronic exposure to nonionizing radiation; D18.01 Hemangioma of skin and subcutaneous tissue; L81.4 Other melanin hyperpigmentation | CPT/HCPCS: 17000; 99214 ==

== ENCOUNTER 2023-06-05 11:53 | Oncology outpatient (recurring) (ONCR) | payer OTHER, SELFPAY ==
[2023-06-05 13:19] LABS: Basophils % 0.5 %; Eosinophils # 0.2 10^3/uL (0.0-0.8); Eosinophils % 2.1 %; Hematocrit 37.3 % (37-53); Lymphocytes # 1.5 10^3/uL (0.8-4.8); Lymphocytes % 18.9 %; Mean Corpuscular HGB Conc 35.1 g/dL (30-55); Mean Platelet Volume 9.7 fL (7.4-10.4); Monocytes # 0.6 10^3/uL (0.2-0.9); Monocytes % 7.4 %; Neutrophils # 5.77 10^3/uL (1.8-7.7); Neutrophils % 70.7 %; Nucleated Red Blood Cells % 0 %; Platelet Count 214 10^3/cmm (157-399); Red Cell Distribution Width 12.2 % (12.1-15.1); White Blood Count 8.15 10^3/uL (3.29-11.43)
[2023-06-05 13:51] LABS: Alanine Aminotransferase 22 U/L (0-41); Albumin Level 3.8 g/dL (3.5-5.2); Alkaline Phosphatase 104 U/L (40-130); Aspartate Amino Transferase 20 U/L (0-40); Blood Urea Nitrogen 26 mg/dL (8-23); Calcium 9.3 mg/dL (8.5-10.5); Carbon Dioxide 22 mmol/L (22-29); Chloride 104 mmol/L (98-107); Globulin 3.4 g/dL (1.3-4.6); Glucose 121 mg/dL (65-115); Osmolality Calculated 296 mOsm/kg (285-295); Sodium 140 mmol/L (136-145); Total Bilirubin 0.2 mg/dL (0.15-1.2); Total Protein 7.2 g/dL (6.6-8.7)
[2023-06-05 13:53] LABS: Anion Gap 17.7 (5-19); Potassium 3.7 mmol/L (3.5-5.1)
[2023-06-05 14:13] LABS: Testosterone Total 2.5 ng/dL (193-740)
[2023-06-05 14:15] LABS: Lactate Dehydrogenase 144 U/L (135-225)
== END 2023-06-11 23:59 | disposition home or self-care (01) ==
LOC: ONCMED 11:54
PROVIDERS: Internal Medicine; Nurse Practitioner Family; PCP Emergency Medicine Emergency Medical Services; Visit Provider Internal Medicine Medical Oncology
DX: C61 Malignant neoplasm of prostate; R97.21 Rising PSA following treatment for malignant neoplasm of prostate; Z79.818 Long term (current) use of other agents affecting estrogen receptors and estrogen levels; Z92.3 Personal history of irradiation
CPT/HCPCS: 36415; 80053; 83615; 84153; 84403; 85025; 99214

== ENCOUNTER 2023-08-05 13:55 | Oncology outpatient (recurring) (ONCR) | payer OTHER, SELFPAY ==
[2023-07-29 10:20] LABS: Basophils % 0.4 %; Eosinophils # 0.1 10^3/uL (0.0-0.8); Hematocrit 39.4 % (37-53); Lymphocytes # 1.5 10^3/uL (0.8-4.8); Mean Corpuscular Hemoglobin 31.5 pg (27-33); Mean Corpuscular Volume 92.5 fl (82-101); Mean Platelet Volume 9.5 fL (7.4-10.4); Monocytes # 0.6 10^3/uL (0.2-0.9); Monocytes % 9.2 %; Neutrophils # 4.51 10^3/uL (1.8-7.7); Nucleated Red Blood Cells % 0 %; Platelet Count 247 10^3/cmm (157-399); Red Blood Count 4.26 10^6/uL (3.85-5.65); Red Cell Distribution Width 13.1 % (12.1-15.1); White Blood Count 6.85 10^3/uL (3.29-11.43)
[2023-07-29 10:54] LABS: Alanine Aminotransferase 18 U/L (0-41); Albumin Level 4.2 g/dL (3.5-5.2); Alkaline Phosphatase 104 U/L (40-130); Aspartate Amino Transferase 20 U/L (0-40); Blood Urea Nitrogen 21 mg/dL (8-23); Calcium 9.5 mg/dL (8.5-10.5); Carbon Dioxide 25 mmol/L (22-29); Chloride 102 mmol/L (98-107); Globulin 3.2 g/dL (1.3-4.6); Glucose 89 mg/dL (65-115); Osmolality Calculated 286 mOsm/kg (285-295); Prostate Specific Antigen 0.479 ng/mL (0-4); Sodium 137 mmol/L (136-145); Total Bilirubin 0.3 mg/dL (0.15-1.2); Total Protein 7.4 g/dL (6.6-8.7)
[2023-07-29 15:09] LABS: Testosterone Total 2.5 ng/dL (193-740)
== END 2023-08-10 23:59 | disposition home or self-care (01) ==
PROVIDERS: Internal Medicine; PCP Emergency Medicine Emergency Medical Services; Visit Provider Internal Medicine Medical Oncology
DX: C61 Malignant neoplasm of prostate (principal); Z79.899 Other long term (current) drug therapy
CPT/HCPCS: 36415; 80053; 84153; 84403; 85025; 99214

== ENCOUNTER 2023-10-29 12:15 | Oncology outpatient (recurring) (ONCR) | payer OTHER, SELFPAY ==
--- NOTE | 2023-10-16 06:04 | USCV_ITS ---
Steve Adames Age: 73 Gender: M : 1950 Exam Date: 10/16/2023 06:07 Ordering Phys: Riana Herring MD Technologist: ANGELIQUE [place] [facility] [place]ication: screening HISTORY: Diameter (cm) AP x Transverse x Length Velocity (cm/s) Waveform Prox Aorta: 2.30 x 2.70 x 48.20 Triphasic Mid Aorta: 1.70 x 2.00 x 34.70 Triphasic Distal Aorta: 1.70 x 2.00 x 35.60 Biphasic Right Iliac Prox: 0.90 x 1.10 x 65.40 Triphasic Left Iliac Prox: 1.00 x 1.10 x 67.10 Triphasic Stent Prox Landing x x Aneurysmal Sac Max x x Lt Lat Sac Dim Rt Lat Sac Dim Stent Dist Landing x x Right Iliac Stent x x Left Iliac Stent x x Right Renal Art Left Renal Art FINDINGS: Comparison: none available. A complete assessment of the abdominal aorta was not possible. Ectatic abdominal aorta with evidence of atherosclerotic plaque noted. There is evidence of atherosclerotic plaque no significan stenosis in the right common iliac artery. There is evidence of atherosclerotic plaque no significan stenosis in the left common iliac artery. CONCLUSIONS Ectatic abdominal aorta with evidence of atherosclerotic plaque noted. No evidence of abdominal aortic aneurysm. Dr. Miladys Elizabeth DO (Electronically Signed) Final Date: 16 October 2023 12:14 S
[2023-10-29 12:16] LABS: Basophils % 0.5 %; Eosinophils # 0.3 10^3/uL (0.0-0.8); Eosinophils % 4.1 %; Hematocrit 37.9 % (37-53); Lymphocytes # 1.6 10^3/uL (0.8-4.8); Lymphocytes % 24.8 %; Mean Corpuscular HGB Conc 33.5 g/dL (30-55); Mean Corpuscular Hemoglobin 31.1 pg (27-33); Mean Corpuscular Volume 92.7 fl (82-101); Mean Platelet Volume 9.6 fL (7.4-10.4); Monocytes # 0.6 10^3/uL (0.2-0.9); Monocytes % 8.6 %; Neutrophils # 3.94 10^3/uL (1.8-7.7); Neutrophils % 61.7 %; Nucleated Red Blood Cells % 0 %; Platelet Count 201 10^3/cmm (157-399); Red Blood Count 4.09 10^6/uL (3.85-5.65); Red Cell Distribution Width 12.9 % (12.1-15.1); White Blood Count 6.38 10^3/uL (3.29-11.43)
[2023-10-29 12:40] LABS: Alanine Aminotransferase 20 U/L (0-41); Alkaline Phosphatase 112 U/L (40-130); Aspartate Amino Transferase 21 U/L (0-40); Blood Urea Nitrogen 23 mg/dL (8-23); Calcium 9.3 mg/dL (8.5-10.5); Carbon Dioxide 25 mmol/L (22-29); Chloride 102 mmol/L (98-107); Globulin 3.3 g/dL (1.3-4.6); Glucose 82 mg/dL (65-115); Lactate Dehydrogenase 149 U/L (135-225); Osmolality Calculated 293 mOsm/kg (285-295); Sodium 140 mmol/L (136-145); Total Bilirubin 0.2 mg/dL (0.15-1.2); Total Protein 7.3 g/dL (6.6-8.7)
[2023-10-29 12:41] LABS: Testosterone Total < 2.5 ng/dL (193-740)
== END 2023-11-09 23:59 | disposition home or self-care (01) ==
PROVIDERS: Internal Medicine; PCP Emergency Medicine Emergency Medical Services; Visit Provider Family Medicine
DX: C61 Malignant neoplasm of prostate (principal); R97.21 Rising PSA following treatment for malignant neoplasm of prostate; Z79.818 Long term (current) use of other agents affecting estrogen receptors and estrogen levels; Z92.3 Personal history of irradiation; Z53.9 Procedure and treatment not carried out, unspecified reason
CPT/HCPCS: 36415; 76706; 80053; 83615; 84153; 84403; 85025; 99214

== ENCOUNTER 2023-11-06 15:58 | Outpatient (CLI) | payer OTHER, SELFPAY ==
[2023-11-06 16:16] LABS: Add Urine Microscopic? YES; Bilirubin Urine Neg (Negative); Blood Urine 3+ (Negative); Glucose Urine UA Norm (Normal); Ketones Urine Negative (Negative); Leukocyte Esterase Urine 2+ (Negative); Nitrate Urine Positive; Protein Urine 1+ (Negative); Urine Appearance Cloudy (CLEAR); Urine Color Yellow (Yellow); Urobilinogen Urine Norm (Negative); pH Urine 6 (5-7)
[2023-11-06 16:22] LABS: Add Urine Culture? Yes; Amorphous Sediment Urine 1+ /hpf; Bacteria Urine 1+ /hpf; Mucus Urine 1+ /hpf; RBC Urine >100 /hpf (0-2); Squamous Epithelial Cell Urine 0-4 /hpf (0-5); WBC Urine 40-55 /hpf (0-5)
== END 2023-11-06 15:59 | disposition home or self-care (01) ==
LOC: LAB 15:59
PROVIDERS: PCP Emergency Medicine Emergency Medical Services; Visit Provider Emergency Medicine Emergency Medical Services
DX: Z01.89 Encounter for other specified special examinations (principal)
CPT/HCPCS: 81001; 87077; 87086; 87186

== ENCOUNTER 2024-01-28 11:43 | Oncology outpatient (recurring) (ONCR) | payer OTHER, SELFPAY ==
[2024-01-28 12:08] LABS: Basophils % 0.4 %; Eosinophils # 0.1 10^3/uL (0.0-0.8); Eosinophils % 1.8 %; Hematocrit 38.5 % (37-53); Lymphocytes # 1.5 10^3/uL (0.8-4.8); Lymphocytes % 19.9 %; Mean Corpuscular HGB Conc 33.2 g/dL (30-55); Mean Corpuscular Hemoglobin 30.5 pg (27-33); Mean Corpuscular Volume 91.7 fl (82-101); Mean Platelet Volume 9.3 fL (7.4-10.4); Monocytes # 0.5 10^3/uL (0.2-0.9); Monocytes % 6.8 %; Neutrophils # 5.21 10^3/uL (1.8-7.7); Neutrophils % 70.7 %; Nucleated Red Blood Cells % 0 %; Platelet Count 192 10^3/cmm (157-399); Red Cell Distribution Width 12.7 % (12.1-15.1); White Blood Count 7.37 10^3/uL (3.29-11.43)
[2024-01-28 12:38] LABS: Alanine Aminotransferase 17 U/L (0-41); Albumin Level 4.1 g/dL (3.5-5.2); Alkaline Phosphatase 113 U/L (40-130); Anion Gap 15.2 (5-19); Aspartate Amino Transferase 16 U/L (0-40); Blood Urea Nitrogen 27 mg/dL (8-23); Calcium 9.3 mg/dL (8.5-10.5); Carbon Dioxide 23 mmol/L (22-29); Chloride 106 mmol/L (98-107); Globulin 3.3 g/dL (1.3-4.6); Glucose 94 mg/dL (65-115); Osmolality Calculated 295 mOsm/kg (285-295); Potassium 4.2 mmol/L (3.5-5.1); Sodium 140 mmol/L (136-145); Testosterone Total 63.8 ng/dL (193-740); Total Bilirubin 0.4 mg/dL (0.15-1.2); Total Protein 7.4 g/dL (6.6-8.7)
== END 2024-02-09 23:59 | disposition home or self-care (01) ==
PROVIDERS: Nurse Practitioner Family; PCP Emergency Medicine Emergency Medical Services; Visit Provider Family Medicine
DX: C61 Malignant neoplasm of prostate (principal); R97.21 Rising PSA following treatment for malignant neoplasm of prostate; Z79.818 Long term (current) use of other agents affecting estrogen receptors and estrogen levels; Z92.3 Personal history of irradiation
CPT/HCPCS: 36415; 80053; 84153; 84403; 85025; 99214

== ENCOUNTER 2024-04-27 11:45 | Oncology outpatient (recurring) (ONCR) | payer OTHER, SELFPAY ==
[2024-04-27 12:01] LABS: Basophils % 0.5 %; Eosinophils # 0.1 10^3/uL (0.0-0.8); Eosinophils % 1.9 %; Hematocrit 39.3 % (37-53); Lymphocytes # 1.8 10^3/uL (0.8-4.8); Lymphocytes % 24.5 %; Mean Corpuscular HGB Conc 33.6 g/dL (30-55); Mean Corpuscular Hemoglobin 30.7 pg (27-33); Mean Corpuscular Volume 91.4 fl (82-101); Mean Platelet Volume 9.3 fL (7.4-10.4); Monocytes # 0.5 10^3/uL (0.2-0.9); Monocytes % 6.3 %; Neutrophils # 4.89 10^3/uL (1.8-7.7); Neutrophils % 66.4 %; Nucleated Red Blood Cells % 0 %; Platelet Count 218 10^3/cmm (157-399); Red Cell Distribution Width 12.8 % (12.1-15.1); White Blood Count 7.36 10^3/uL (3.29-11.43)
[2024-04-27 12:33] LABS: Alanine Aminotransferase 14 U/L (0-41); Albumin Level 3.9 g/dL (3.5-5.2); Alkaline Phosphatase 108 U/L (40-130); Anion Gap 16.7 (5-19); Aspartate Amino Transferase 16 U/L (0-40); Blood Urea Nitrogen 23 mg/dL (8-23); Calcium 9.2 mg/dL (8.5-10.5); Carbon Dioxide 22 mmol/L (22-29); Chloride 102 mmol/L (98-107); Globulin 3.1 g/dL (1.3-4.6); Glucose 151 mg/dL (65-115); Osmolality Calculated 291 mOsm/kg (285-295); Potassium 3.7 mmol/L (3.5-5.1); Sodium 137 mmol/L (136-145); Testosterone Total 164.8 ng/dL (193-740); Total Bilirubin 0.2 mg/dL (0.15-1.2)
== END 2024-05-11 23:59 | disposition home or self-care (01) ==
PROVIDERS: Nurse Practitioner Family; PCP Emergency Medicine Emergency Medical Services; Visit Provider Internal Medicine Medical Oncology
DX: C61 Malignant neoplasm of prostate (principal); R97.21 Rising PSA following treatment for malignant neoplasm of prostate; Z79.818 Long term (current) use of other agents affecting estrogen receptors and estrogen levels; Z92.3 Personal history of irradiation; F17.210 Nicotine dependence, cigarettes, uncomplicated; G62.0 Drug-induced polyneuropathy; R23.2 Flushing; T45.1X5A Adverse effect of antineoplastic and immunosuppressive drugs, initial encounter; Z79.899 Other long term (current) drug therapy
CPT/HCPCS: 36415; 80053; 84153; 84403; 85025; 99214

== ENCOUNTER 2024-05-11 08:18 | Outpatient (CLI) | payer OTHER, SELFPAY ==
--- NOTE | 2024-05-11 08:45 | NMR_ITS ---
PROCEDURE INFORMATION: Exam: NM Bone and/or Joint, Limited Exam date and time: 05/11/2024 8:45 AM Age: 74 years old Clinical indication: Abnormal findings; Abnormal lab test; Other: Rising psa; Prior surgery; Surgery date: 6+ months; Surgery type: RT knee replacement TECHNIQUE: Imaging protocol: Nuclear bone scan was obtained. Views: Frontal and posterior Radiopharmaceutical: 26.3 mCi Tc-99m HDP (Oxidronate), IV. Time of imaging post radiopharmaceutical administration: 2 hours COMPARISON: No relevant prior studies available. FINDINGS: Skeleton: Focal radiotracer uptake in the medial left knee which is likely degenerative. No additional areas of focal radiotracer uptake seen throughout the rest of the visualized axial skeleton. Soft tissues: There is focal radiotracer uptake in the region of the upper pole of the left kidney. NM/NM bone scan whole body* [id number] IMPRESSION: 1. No findings of osseous metastatic disease. 2. There is nonspecific focal radiotracer uptake in the upper pole of the left kidney. Would suggest further imaging with either ultrasound or CT for further evaluation.
== END 2024-05-11 08:19 | disposition home or self-care (01) ==
PROVIDERS: PCP Emergency Medicine Emergency Medical Services; Visit Provider Nurse Practitioner Family
DX: C61 Malignant neoplasm of prostate (principal); R97.20 Elevated prostate specific antigen [PSA]; R93.7 Abnormal findings on diagnostic imaging of other parts of musculoskeletal system
CPT/HCPCS: 78306; A9561

== ENCOUNTER 2024-05-31 08:26 | Oncology outpatient (recurring) (ONCR) | payer OTHER, SELFPAY ==
--- NOTE | 2024-05-24 15:30 | US_ITS ---
WS: [id number] RENAL ULTRASOUND HISTORY: nonspecific uptake on left kidney noted on bone scan COMPARISON: Bone scan 05/11/2024 TECHNIQUE: 2-D and color Doppler imaging of the kidney submitted. Right kidney: 12.0 cm x 4.0 cm x 5.0 cm. Cortex: 1.0 cm Normal size kidney. Exophytic cyst from the lower pole 1.9 x 2.2 x 2.2 cm. Left kidney: 10.9 cm x 4.8 cm x 5.7 cm. Cortex: 1.3 cm Normal size kidney. Several large cysts are identified. No solid mass. Largest cyst from the superior pole measures 5.0 x 4.1 x 4.9 cm. Largest cyst in the lower pole 4.8 x 4.5 x 4.9 cm. Aorta: Normal. Urinary Bladder: Suprapubic catheter. Nondistended bladder. US/US renal BI* [id number] IMPRESSION: 1. No hydronephrosis or solid renal mass. 2. Bilateral renal cysts. No corresponding finding associated with the LEFT ki dney to explain the focal increased uptake. Please note a similar finding was i dentified on a prior bone scan from 02/17/2023. 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
== END 2024-06-11 23:59 | disposition home or self-care (01) ==
PROVIDERS: Visit Provider Internal Medicine Medical Oncology
DX: C61 Malignant neoplasm of prostate (principal); F17.210 Nicotine dependence, cigarettes, uncomplicated; Z92.89 Personal history of other medical treatment; Z79.899 Other long term (current) drug therapy
CPT/HCPCS: 76770; 99214

== ENCOUNTER 2024-06-21 09:03 | Oncology outpatient (recurring) (ONCR) | payer OTHER, SELFPAY ==
[2024-06-21 09:26] LABS: Basophils % 0.4 %; Eosinophils # 0.1 10^3/uL (0.0-0.8); Eosinophils % 1.6 %; Hematocrit 40.2 % (37-53); Lymphocytes # 1.2 10^3/uL (0.8-4.8); Lymphocytes % 17.4 %; Mean Corpuscular HGB Conc 33.6 g/dL (30-55); Mean Corpuscular Hemoglobin 29.9 pg (27-33); Mean Corpuscular Volume 88.9 fl (82-101); Mean Platelet Volume 9.1 fL (7.4-10.4); Monocytes # 0.5 10^3/uL (0.2-0.9); Monocytes % 7.7 %; Neutrophils # 4.91 10^3/uL (1.8-7.7); Neutrophils % 72.5 %; Nucleated Red Blood Cells % 0 %; Platelet Count 201 10^3/cmm (157-399); Red Blood Count 4.52 10^6/uL (3.85-5.65); Red Cell Distribution Width 12.7 % (12.1-15.1); White Blood Count 6.78 10^3/uL (3.29-11.43)
[2024-06-21 09:53] LABS: Alanine Aminotransferase 15 U/L (0-41); Alkaline Phosphatase 116 U/L (40-130); Anion Gap 17.8 (5-19); Aspartate Amino Transferase 16 U/L (0-40); Blood Urea Nitrogen 21 mg/dL (8-23); Calcium 9.6 mg/dL (8.5-10.5); Carbon Dioxide 22 mmol/L (22-29); Chloride 100 mmol/L (98-107); Creatinine Clr Calc Pharmacy 85.9676; Globulin 3.3 g/dL (1.3-4.6); Glucose 108 mg/dL (65-115); Osmolality Calculated 286 mOsm/kg (285-295); Potassium 3.8 mmol/L (3.5-5.1); Sodium 136 mmol/L (136-145); Total Bilirubin 0.3 mg/dL (0.15-1.2); Total Protein 7.3 g/dL (6.6-8.7)
[2024-06-21 09:54] LABS: Testosterone Total < 2.5 ng/dL (193-740)
== END 2024-07-09 23:59 | disposition home or self-care (01) ==
PROVIDERS: Visit Provider Internal Medicine Medical Oncology
DX: C61 Malignant neoplasm of prostate (principal); R33.9 Retention of urine, unspecified; F17.210 Nicotine dependence, cigarettes, uncomplicated; Z79.899 Other long term (current) drug therapy
CPT/HCPCS: 36415; 80053; 84153; 84403; 85025; 99214

== ENCOUNTER 2024-07-19 09:17 | Oncology outpatient (recurring) (ONCR) | payer OTHER, SELFPAY ==
[2024-07-19 09:36] LABS: Basophils % 0.4 %; Eosinophils # 0.1 10^3/uL (0.0-0.8); Eosinophils % 1.7 %; Hematocrit 38.3 % (37-53); Lymphocytes # 1.2 10^3/uL (0.8-4.8); Lymphocytes % 17.5 %; Mean Corpuscular HGB Conc 34.5 g/dL (30-55); Mean Corpuscular Hemoglobin 30.8 pg (27-33); Mean Corpuscular Volume 89.5 fl (82-101); Monocytes # 0.5 10^3/uL (0.2-0.9); Monocytes % 7.4 %; Neutrophils # 5.13 10^3/uL (1.8-7.7); Neutrophils % 72.6 %; Nucleated Red Blood Cells % 0 %; Platelet Count 217 10^3/cmm (157-399); Red Blood Count 4.28 10^6/uL (3.85-5.65); White Blood Count 7.07 10^3/uL (3.29-11.43)
[2024-07-19 10:09] LABS: Alanine Aminotransferase 15 U/L (0-41); Alkaline Phosphatase 113 U/L (40-130); Anion Gap 16.6 (5-19); Aspartate Amino Transferase 18 U/L (0-40); Blood Urea Nitrogen 25 mg/dL (8-23); Calcium 9.7 mg/dL (8.5-10.5); Carbon Dioxide 21 mmol/L (22-29); Chloride 98 mmol/L (98-107); Globulin 3.3 g/dL (1.3-4.6); Glucose 110 mg/dL (65-115); Osmolality Calculated 279 mOsm/kg (285-295); Potassium 3.6 mmol/L (3.5-5.1); Sodium 132 mmol/L (136-145); Total Bilirubin 0.3 mg/dL (0.15-1.2); Total Protein 7.3 g/dL (6.6-8.7)
[2024-07-19 10:12] LABS: Testosterone Total < 2.5 ng/dL (193-740)
== END 2024-08-09 23:59 | disposition home or self-care (01) ==
PROVIDERS: Visit Provider Internal Medicine Medical Oncology
DX: C61 Malignant neoplasm of prostate (principal); R33.9 Retention of urine, unspecified; F17.210 Nicotine dependence, cigarettes, uncomplicated; Z79.899 Other long term (current) drug therapy
CPT/HCPCS: 36415; 80053; 84153; 84403; 85025; 99214

== ENCOUNTER → 2024-07-20 14:49 | Outpatient (BNVA) | payer OTHER, SELFPAY | PROVIDERS: Visit Provider Nurse Practitioner Family | DX: L21.8 Other seborrheic dermatitis (principal); L29.89 Other pruritus; L72.0 Epidermal cyst; L85.3 Xerosis cutis; D18.01 Hemangioma of skin and subcutaneous tissue; L57.8 Other skin changes due to chronic exposure to nonionizing radiation; T07.XXXA Unspecified multiple injuries, initial encounter; X58.XXXA Exposure to other specified factors, initial encounter; L57.0 Actinic keratosis; L56.8 Other specified acute skin changes due to ultraviolet radiation | CPT/HCPCS: 17000; 99214 ==

== ENCOUNTER 2024-08-16 09:23 | Oncology outpatient (recurring) (ONCR) | payer OTHER, SELFPAY ==
[2024-08-16 09:47] LABS: Basophils % 0.6 %; Eosinophils # 0.1 10^3/uL (0.0-0.8); Eosinophils % 1.4 %; Hematocrit 36.9 % (37-53); Lymphocytes # 1.4 10^3/uL (0.8-4.8); Lymphocytes % 21.8 %; Mean Corpuscular HGB Conc 33.9 g/dL (30-55); Mean Corpuscular Hemoglobin 30.4 pg (27-33); Mean Corpuscular Volume 89.8 fl (82-101); Mean Platelet Volume 9.5 fL (7.4-10.4); Monocytes # 0.5 10^3/uL (0.2-0.9); Neutrophils # 4.44 10^3/uL (1.8-7.7); Neutrophils % 68.7 %; Nucleated Red Blood Cells % 0 %; Platelet Count 203 10^3/cmm (157-399); Red Blood Count 4.11 10^6/uL (3.85-5.65); Red Cell Distribution Width 12.9 % (12.1-15.1); White Blood Count 6.46 10^3/uL (3.29-11.43)
[2024-08-16 10:14] LABS: Alanine Aminotransferase 14 U/L (0-41); Albumin Level 4.2 g/dL (3.5-5.2); Alkaline Phosphatase 99 U/L (40-130); Anion Gap 15.8 (5-19); Aspartate Amino Transferase 17 U/L (0-40); Blood Urea Nitrogen 24 mg/dL (8-23); Calcium 9.4 mg/dL (8.5-10.5); Carbon Dioxide 24 mmol/L (22-29); Chloride 100 mmol/L (98-107); Creatinine Clr Calc Pharmacy 78.2988; Globulin 3.1 g/dL (1.3-4.6); Glucose 100 mg/dL (65-115); Osmolality Calculated 286 mOsm/kg (285-295); Potassium 3.8 mmol/L (3.5-5.1); Sodium 136 mmol/L (136-145); Total Bilirubin 0.4 mg/dL (0.15-1.2); Total Protein 7.3 g/dL (6.6-8.7)
[2024-08-16 10:19] LABS: Testosterone Total < 2.5 ng/dL (193-740)
== END 2024-09-08 23:59 | disposition home or self-care (01) ==
PROVIDERS: Visit Provider Internal Medicine Medical Oncology
DX: C61 Malignant neoplasm of prostate (principal); R33.9 Retention of urine, unspecified; F17.210 Nicotine dependence, cigarettes, uncomplicated; R97.20 Elevated prostate specific antigen [PSA]; Z79.899 Other long term (current) drug therapy
CPT/HCPCS: 36415; 80053; 84153; 84403; 85025; 99213